=== PATIENT | male | born 1965 | race American Indian/Alaskan Native ===

== ENCOUNTER 2016-08-31 06:00 | Inpatient (IN) | payer OTHER ==
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
[2016-08-31] MEDS ORDERED: NACL 0.9% 1000 ML IV ONE (14:17)
--- NOTE | 2016-08-31 15:49 | Admit Criteria Form ---
Admission Criteria Documentation: DRUG INGESTION OR OVERDOSE Clinical Indications for Admission to Inpatient Care ( Place 'X' for any and all applicable criteria): Admission is indicated for severe toxicity as indicated by ANY ONE of the following(1)(2)(3)(4)(5)(6): [X ]I. Inpatient admission required rather than observation care (Also use Drug Ingestion or Overdose: Observation Care guideline as appropriate) because of ANY ONE of the following: [ ]a) Altered mental status that is severe or persistent [ ]b) Clinical finding (eg, metabolic acidosis, hypoglycemia, bradycardia) that is severe or persistent [ ]c) Toxic drug level that is persistent [ ]d) Psychiatric risk status not acceptable for outpatient management [ ]e) Continuous intravenous infusion of anticoagulation, platelet inhibitor, vasoactive, or antiarrhythmic medication (15)(16) [ X]f) Other condition, treatment or monitoring requiring inpatient admission [ ]II. Respiratory abnormalities [ ]III. Specific finding indicating severe and likely prolonged drug toxicity [ ]IV. Hemodynamic instability [ ]V. Dangerous arrhythmia [X ]. Hypertension requiring inpatient treatment Extended stay beyond goal length of stay may be needed for (4): [ ]a) Neurologic or respiratory compromise [ ]b) Hemodynamic instability [ ]c) Persistent toxic drug levels (25) [ ]d) Severe drug toxicities or complications [ ]e) Ongoing antidote treatment (eg, acetaminophen overdose)(5) [ ]f) Older patients(65 years or older) The original [facility] content created by [employer] has been revised. The portions of the content which have been revised are identified through the use of italic text or in bold, and [facility] has neither reviewed nor approved the modified material. All other unmodified content is copyright [facility] [employer]. Please see references footnoted in the original [facility] [employer] edition 2016 Admission Criteria Met: Yes
[2016-08-31] MEDS ORDERED: ASPIRIN PO ONE (16:48)
[2016-08-31 18:57] LABS: Blood Urea Nitrogen 9 mg/dL (9-20); Calcium 8.5 mg/dL (8.4-10.2); Carbon Dioxide 23 mmol/L (22-30); Chloride 107.9 mmol/L (98-107); Glucose 92 mg/dL (75-100); Potassium 4.3 mmol/L (3.6-5.0); Sodium 143 mmol/L (137-145)
[2016-08-31 18:58] LABS: Anion Gap 16 mmol/L
--- NOTE | 2016-08-31 18:58 | History and Physical Report ---
History of Present Illness Date of examination: 08/31/16 Chief complaint: "Dehydrated from alcohol" History of present illness: Patient's 51-year-old man with a history of cocaine abuse, type 2 diabetes mellitus, hypertension, GERD, Pancreatitis, tobacco dependency and schizophrenia who presents with hallucinations was suicidal or homicidal thoughts. He has been placed on 1013 by ED staff. He denied his medication for at least a month. He admits to drinking a case of beer yesterday. His last drink was around 3 AM this morning. He also admits to smoking crack cocaine. He plans to jump into traffic in his life. He is paranoid signs:. He complains of being dehydrated from his alcohol use. He denies any back pain at this particular time. He denies chest pain headaches nausea or vomiting. Alcohol level 0.22, blood glucose is 111, potassium level is 5.9 his artery received 2 L of normal saline and feels better. Mental Health crisis was notified. Past History Past Surgical History: No surgical history Social history: smoking, alcohol abuse, full code, other (crack cocaine). denies: prescription drug abuse, IV drug use Family history: diabetes, hypertension Medications and Allergies Allergies Allergy/AdvReac Type Severity Reaction Status Date / Time Penicillins Allergy Unknown Verified 05/22/15 05:04 Home Medications Medication Instructions Recorded Confirmed Last Taken Type Carvedilol [Coreg] 3.125 mg PO BID #60 tablet 08/28/14 05/22/15 Unknown Rx Omeprazole Magnesium [PriLOSEC Otc] 20 mg PO QDAY #30 tablet. 08/28/14 Unknown Rx QUEtiapine [SEROquel] 200 mg PO BID 05/22/15 05/22/15 Unknown History risperiDONE [RisperDAL] 2 mg PO QDAY 05/22/15 05/22/15 Unknown History Active Meds: Active Medications Carvedilol (Coreg) 3.125 mg PO BID ADRIAN Miscellaneous Medication (Omeprazole Magnesium [Prilosec Otc]) 20 mg PO QDAY ADRIAN Quetiapine Fumarate (Seroquel) 200 mg PO BID ADRIAN Review of Systems All systems: negative (as HPI and all other ROS reviewed and negative.) Exam - Physical Exam Narrative exam: GEN: WDWN, NAD, AWAKE, ALERT, ORIENTATED 3 HEENT: NCAT, PERRL, EOMI, OP CLEAR NECK: SUPPLE, NO THYROMEGALY, NO JVD, NO LAD CVS: RRR, NORMAL S1S2 LUNGS/CHEST: CTA B, NORMAL CHEST EXPANSION B, GOOD AIR ENTRY B ABD: SOFT NTND, GBS, NO REBOUND OR GUARDING EXT/SKIN: NO SIGNIFICANT EDEMA OR RASH MSK: FROM X 4 EXTREMITIES NEURO: CN 2-12 GROSSLY INTACT, NO FOCAL DEFICITS PSY: CALM - Constitutional Vitals: Temp Pulse Resp BP Pulse Ox 73 16 142/104 100 08/31/16 08:20 08/31/16 18:17 08/31/16 08:20 08/31/16 18:17 Assessment and Plan Patient's 51-year-old man with a history of cocaine abuse, type 2 diabetes mellitus, hypertension, GERD, Pancreatitis, tobacco dependency and schizophrenia who presents with hallucinations was suicidal or homicidal thoughts. He has been placed on 1013 by ED staff. He denied his medication for at least a month. He admits to drinking a case of beer yesterday. His last drink was around 3 AM this morning. He also admits to smoking crack cocaine. He plans to jump into traffic in his life. He is paranoid signs:. He complains of being dehydrated from his alcohol use. He denies any back pain at this particular time. He denies chest pain headaches nausea or vomiting. Alcohol level 0.22, blood glucose is 111, potassium level is 5.9 his artery received 2 L of normal saline and feels better. Mental Health crisis was notified 1. Etoh intoxication: iv atiran prn, thiamine 2. Hyperkalemia: repeat level, no peaked t wave on EKG, 3. Acute encephalopathy 4. Accelerated hypertenison: iv hydralazine prn 5. Schizophrenia, chronic and worsening: under 1013, mental health follow-up
[2016-08-31] MEDS ORDERED: HALDOL IV PRN (18:59)
[2016-08-31] MEDS ORDERED: ZOFRAN IV PRN (19:00)
[2016-08-31] MEDS ORDERED: APRESOLINE IV PRN (19:00)
[2016-08-31] MEDS: COREG PO SCH (23:45)
[2016-09-01] MEDS: NACL 0.45% 1000 ML 1,000 ML IV SCH ×2 (02:00→10:07)
[2016-09-01 09:28] LABS: Hematocrit 44.9 % (35.5-45.6); Mean Corpuscular HGB Conc 33 % (32-34); Mean Corpuscular Hemoglobin 32 pg (28-32); Mean Corpuscular Volume 96 fl (84-94); Platelet Count 234 K/mm3 (140-440); Red Cell Distribution Width 14.9 % (13.2-15.2); White Blood Count 5.4 K/mm3 (4.5-11.0)
[2016-09-01 09:36] LABS: Magnesium 1.9 mg/dL (1.7-2.3); Phosphorous 3.4 mg/dL (2.5-4.5)
[2016-09-01 09:38] LABS: Anion Gap 16 mmol/L; Blood Urea Nitrogen 9 mg/dL (9-20); Calcium 8.4 mg/dL (8.4-10.2); Carbon Dioxide 26 mmol/L (22-30); Chloride 102.4 mmol/L (98-107); Glucose 83 mg/dL (75-100); Potassium 3.7 mmol/L (3.6-5.0); Sodium 141 mmol/L (137-145)
[2016-09-01] MEDS ORDERED: NON-FORMULARY (Omeprazole Magnesium [Prilosec Otc] 20 MG) PO SCH (10:00)
[2016-09-01] MEDS ORDERED: PROTONIX PO SCH (10:00)
[2016-09-01] MEDS: COREG PO SCH ×2 (10:07→21:47)
[2016-09-01] MEDS: PROTONIX PO SCH (10:07)
[2016-09-01] MEDS: VITAMIN B-1 PO SCH (10:07)
[2016-09-01] MEDS: FOLVITE PO SCH (10:07)
--- NOTE | 2016-09-01 11:31 | Progress Note ---
Assessment and Plan Assessment and plan: Acute toxic metabolic encephalopathy. Admitted to med floor. Neurocheck q 6hr. Schizophrenia. Psych consulted Suicidal ideations. On involuntary hold - 1013 status. Acute alcohol intoxication. Monitor for alohol withdrawal. iv fluids. thiamine, folic acid. CIWA protocol DVT Prophylaxis. Lovenox Full code status History Interval history: Patient with acute alcohol intoxication, suicidal Hospitalist Physical - Physical exam Narrative exam: Gen appearance: not in acute distress, HEENT: Normocephalic, atraumatic Neck : supple, no JVD Lungs: Lungs clear to auscultation bilaterally, no crackles or wheeze. Heart : S1 and S2 regular, no murmurs rubs or gallop, Abdomen: soft non-tender, non-distended, normal bowel sounds Extremities: No edema clubbing or cyanosis, Neuro :awake alert ,no focal signs - Constitutional Vitals: Temp Pulse Resp BP Pulse Ox 97.8 F 60 18 160/111 98 09/01/16 08:20 09/01/16 08:20 09/01/16 08:20 09/01/16 08:20 09/01/16 08:20 Results - Labs CBC & Chem 7: 09/01/16 09:01 09/01/16 09:01 Labs: Laboratory Last Values WBC 5.4 K/mm3 (4.5-11.0) 09/01/16 09:01 RBC 4.70 M/mm3 (3.65-5.03) 09/01/16 09:01 Hgb 15.0 gm/dl (11.8-15.2) 09/01/16 09:01 Hct 44.9 % (35.5-45.6) 09/01/16 09:01 MCV 96 fl (84-94) H 09/01/16 09:01 MCH 32 pg (28-32) 09/01/16 09:01 MCHC 33 % (32-34) 09/01/16 09:01 RDW 14.9 % (13.2-15.2) 09/01/16 09:01 Plt Count 234 K/mm3 (140-440) 09/01/16 09:01 Sodium 141 mmol/L (137-145) 09/01/16 09:01 Potassium 3.7 mmol/L (3.6-5.0) 09/01/16 09:01 Chloride 102.4 mmol/L (98-107) 09/01/16 09:01 Carbon Dioxide 26 mmol/L (22-30) 09/01/16 09:01 Anion Gap 16 mmol/L 09/01/16 09:01 BUN 9 mg/dL (9-20) 09/01/16 09:01 Creatinine 1.0 mg/dL (0.8-1.5) 09/01/16 09:01 Estimated GFR > 60 ml/min 09/01/16 09:01 BUN/Creatinine Ratio 9.00 % 09/01/16 09:01 Glucose 83 mg/dL (75-100) 09/01/16 09:01 POC Glucose 88 (70-105) 09/01/16 08:28 Calcium 8.4 mg/dL (8.4-10.2) 09/01/16 09:01 Phosphorus 3.4 mg/dL (2.5-4.5) 09/01/16 09:01 Magnesium 1.9 mg/dL (1.7-2.3) 09/01/16 09:01
[2016-09-01] MEDS: LOVENOX SUB-Q SCH (23:11)
[2016-09-02] MEDS: D5/0.45NS 1,000 ML IV SCH ×2 (01:19→18:04)
[2016-09-02] MEDS: ATIVAN IV PRN ×6 (01:49→21:30)
[2016-09-02] MEDS: COREG PO SCH ×2 (09:46→22:00)
[2016-09-02] MEDS: FOLVITE PO SCH (09:46)
[2016-09-02] MEDS: PROTONIX PO SCH (09:46)
[2016-09-02] MEDS: VITAMIN B-1 PO SCH (09:46)
--- NOTE | 2016-09-02 09:52 | Discharge Summary ---
Providers - Providers Date of Admission: 08/31/16 18:31 Date of discharge: 09/02/16 Attending physician: LEIGHANN BLACK 08/31/16 19:02 Consult to Mental Health [CONS] Stat Reason For Exam: psychosis Place consult to:: [place] Notified:: yes Primary care physician: VARNISH FINISHER Hospitalization Condition: Fair Hospital course: Patient is 51 yo with history of schizophrenia, hypertension,diabetes, alcohol and cocaine abuse. He stated he drank a case of beer, presented with confusion, suicidal and homicidal thoughts. His serum alcohol level was 0.22. He was intoxicated. patient was admitted involuntarily 1013 status. After few days he became sober. he then denied being suicidal or homicidal. Initially Psych staff had recommended transfer to inpatient psych but after he improved, 1013 status was rescinded and he was discharged to [facility] which is voluntary. Total time spent on discharge, 32 mins. Disposition: DC/TX ANOTHER TYPE HEALTHCARE - Discharge Diagnoses (1) Toxic metabolic encephalopathy Status: Acute (2) Alcohol intoxication Status: Acute Qualifiers: Complication of substance-induced condition: C (3) Suicidal ideation Status: Acute (4) Diabetes mellitus type 2 in nonobese Status: Chronic (5) Alcohol abuse Status: Chronic (6) Cocaine abuse Status: Chronic (7) HTN (hypertension) Status: Chronic Qualifiers: Hypertension type: essential hypertension Qualified Code(s): I10 - Essential (primary) hypertension (8) Schizophrenia Status: Chronic Qualifiers: Schizophrenia type: unspecified Qualified Code(s): F20.9 - Schizophrenia, unspecified Core Measure Documentation - Palliative Care Palliative Care/ Comfort Measures: Not Applicable - Core Measures Any of the following diagnoses?: none Exam - Physical Exam Narrative exam: Gen appearance: not in acute distress, HEENT: Normocephalic, atraumatic Neck : supple, no JVD Lungs: Lungs clear to auscultation bilaterally, no crackles or wheeze. Heart : S1 and S2 regular, no murmurs rubs or gallop, Abdomen: soft non-tender, non-distended, normal bowel sounds Extremities: No edema clubbing or cyanosis, Neuro :awake alert ,no focal signs Psych: calm - Constitutional Vitals: Temp Pulse Resp BP Pulse Ox 98.7 F 74 18 164/116 98 09/02/16 08:30 09/02/16 08:30 09/02/16 08:30 09/02/16 08:30 09/02/16 08:30 Plan Activity: advance as tolerated Diet: regular Follow up with: PRIMARY CARE, [Primary Care Provider] - 3-5 Days Prescriptions: amLODIPine [Norvasc] 10 mg PO QDAY #30 tablet Folic Acid [Folvite] 1 mg PO QDAY #30 tablet Hydralazine HCl [Apresoline TAB] 50 mg PO Q8HR #90 tab Thiamine [Vitamin B-1] 100 mg PO QDAY #30 tablet
--- NOTE | 2016-09-02 15:20 | Progress Note ---
Assessment and Plan Assessment and plan: Acute toxic metabolic encephalopathy. Much improved. He is medically stable for discharge to inpatient. Schizophrenia. Psych consulted Suicidal ideations. On involuntary hold - 1013 status. Acute alcohol intoxication. Monitor for alcohol withdrawal. iv fluids. thiamine , folic acid. CIWA protocol DVT Prophylaxis. Lovenox Full code status He is medically stable for discharge. History Interval history: Patient presented with acute alcohol intoxication, suicidal Hospitalist Physical - Physical exam Narrative exam: Gen appearance: not in acute distress, HEENT: Normocephalic, atraumatic Neck : supple, no JVD Lungs: Lungs clear to auscultation bilaterally, no crackles or wheeze. Heart : S1 and S2 regular, no murmurs rubs or gallop, Abdomen: soft non-tender, non-distended, normal bowel sounds Extremities: No edema clubbing or cyanosis, Neuro :awake alert ,no focal signs - Constitutional Vitals: Temp Pulse Resp BP Pulse Ox 98.7 F 74 18 164/116 98 09/02/16 08:30 09/02/16 08:30 09/02/16 08:30 09/02/16 08:30 09/02/16 08:30 Results - Labs CBC & Chem 7: 09/01/16 09:01 09/01/16 09:01 Labs: Laboratory Last Values WBC 5.4 K/mm3 (4.5-11.0) 09/01/16 09:01 RBC 4.70 M/mm3 (3.65-5.03) 09/01/16 09:01 Hgb 15.0 gm/dl (11.8-15.2) 09/01/16 09:01 Hct 44.9 % (35.5-45.6) 09/01/16 09:01 MCV 96 fl (84-94) H 09/01/16 09:01 MCH 32 pg (28-32) 09/01/16 09:01 MCHC 33 % (32-34) 09/01/16 09:01 RDW 14.9 % (13.2-15.2) 09/01/16 09:01 Plt Count 234 K/mm3 (140-440) 09/01/16 09:01 Sodium 141 mmol/L (137-145) 09/01/16 09:01 Potassium 3.7 mmol/L (3.6-5.0) 09/01/16 09:01 Chloride 102.4 mmol/L (98-107) 09/01/16 09:01 Carbon Dioxide 26 mmol/L (22-30) 09/01/16 09:01 Anion Gap 16 mmol/L 09/01/16 09:01 BUN 9 mg/dL (9-20) 09/01/16 09:01 Creatinine 1.0 mg/dL (0.8-1.5) 09/01/16 09: Estimated GFR > 60 ml/min 09/01/16 09: BUN/Creatinine Ratio 9.00 % 09/01/16 09:01 Glucose 83 mg/dL (75-100) 09/01/16 09:01 POC Glucose 88 (70-105) 09/01/16 08:28 Calcium 8.4 mg/dL (8.4-10.2) 09/01/16 09:01 Phosphorus 3.4 mg/dL (2.5-4.5) 09/01/16 09: Magnesium 1.9 mg/dL (1.7-2.3) 09/01/16 09:01
[2016-09-02] MEDS: LOVENOX SUB-Q SCH (22:00)
[2016-09-03] MEDS: FOLVITE PO SCH (10:29)
[2016-09-03] MEDS: PROTONIX PO SCH (10:29)
[2016-09-03] MEDS: COREG PO SCH ×2 (10:48→21:12)
[2016-09-03] MEDS: VITAMIN B-1 PO SCH (12:41)
--- NOTE | 2016-09-03 14:58 | Progress Note ---
Assessment and Plan Assessment and plan: Acute toxic metabolic encephalopathy. This is now resolved. He is medically stable for discharge to inpatient Psych. Schizophrenia. Psych consulted Suicidal ideations. On involuntary hold - 1013 status. Acute alcohol intoxication. Monitor for alcohol withdrawal. iv fluids. thiamine , folic acid. [facility] protocol DVT Prophylaxis. Lovenox Full code status He is medically stable for discharge. - Patient Problems (1) Toxic metabolic encephalopathy Current Visit: Yes Status: Acute (2) Alcohol intoxication Current Visit: Yes Status: Acute Qualifiers: Complication of substance-induced condition: C (3) Suicidal ideation Current Visit: Yes Status: Acute History Interval history: Patient presented with acute alcohol intoxication, suicidal, no chest pain, Patient states he wants to go home Hospitalist Physical - Physical exam Narrative exam: Gen appearance: not in acute distress, HEENT: Normocephalic, atraumatic Neck : supple, no JVD Lungs: Lungs clear to auscultation bilaterally, no crackles or wheeze. Heart : S1 and S2 regular, no murmurs rubs or gallop, Abdomen: soft non-tender, non-distended, normal bowel sounds Extremities: No edema clubbing or cyanosis, Neuro :awake alert ,no focal signs Psych: calm - Constitutional Vitals: Temp Pulse Resp BP Pulse Ox 98.2 F 85 18 130/75 100 09/03/16 11:30 09/03/16 11:30 09/03/16 11:30 09/03/16 11:30 09/03/16 11:30 Results - Labs CBC & Chem 7: 09/01/16 09:01 09/01/16 09:01 Labs: Laboratory Last Values WBC 5.4 K/mm3 (4.5-11.0) 09/01/16 09:01 RBC 4.70 M/mm3 (3.65-5.03) 09/01/16 09:01 Hgb 15.0 gm/dl (11.8-15.2) 09/01/16 09:01 Hct 44.9 % (35.5-45.6) 09/01/16 09:01 MCV 96 fl (84-94) H 09/01/16 09:01 MCH 32 pg (28-32) 09/01/16 09:01 MCHC 33 % (32-34) 09/01/16 09:01 RDW 14.9 % (13.2-15.2) 09/01/16 09:01 Plt Count 234 K/mm3 (140-440) 09/01/16 09:01 Sodium 141 mmol/L (137-145) 09/01/16 09:01 Potassium 3.7 mmol/L (3.6-5.0) 09/01/16 09:01 Chloride 102.4 mmol/L (98-107) 09/01/16 09:01 Carbon Dioxide 26 mmol/L (22-30) 09/01/16 09:01 Anion Gap 16 mmol/L 09/01/16 09:01 BUN 9 mg/dL (9-20) 09/01/16 09:01 Creatinine 1.0 mg/dL (0.8-1.5) 09/01/16 09:01 Estimated GFR > 60 ml/min 09/01/16 09:01 BUN/Creatinine Ratio 9.00 % 09/01/16 09:01 Glucose 83 mg/dL (75-100) 09/01/16 09:01 POC Glucose 88 (70-105) 09/01/16 08:28 Calcium 8.4 mg/dL (8.4-10.2) 09/01/16 09:01 Phosphorus 3.4 mg/dL (2.5-4.5) 09/01/16 09:01 Magnesium 1.9 mg/dL (1.7-2.3) 09/01/16 09:01
[2016-09-03] MEDS: LOVENOX SUB-Q SCH (21:12)
[2016-09-04] MEDS: PROTONIX PO SCH (09:16)
[2016-09-04] MEDS: FOLVITE PO SCH (09:16)
[2016-09-04] MEDS: VITAMIN B-1 PO SCH (09:17)
[2016-09-04] MEDS: COREG PO SCH ×2 (09:17→21:11)
--- NOTE | 2016-09-04 13:17 | Progress Note ---
Assessment and Plan Assessment and plan: Acute toxic metabolic encephalopathy. This is now resolved. He is medically stable for discharge to inpatient Psych. Schizophrenia. Psych consulted Suicidal ideations. On involuntary hold - 1013 status. Acute alcohol intoxication. Monitor for alcohol withdrawal. iv fluids. thiamine , folic acid. [facility] protocol DVT Prophylaxis. Lovenox Full code status He is medically stable for discharge. - Patient Problems (1) Toxic metabolic encephalopathy Current Visit: Yes Status: Acute (2) Alcohol intoxication Current Visit: Yes Status: Acute Qualifiers: Complication of substance-induced condition: C (3) Suicidal ideation Current Visit: Yes Status: Acute History Interval history: Patient presented with acute alcohol intoxication, suicidal, no chest pain, Patient states he wants to go home and that he is not suicidal Hospitalist Physical - Physical exam Narrative exam: Gen appearance: not in acute distress, HEENT: Normocephalic, atraumatic Neck : supple, no JVD Lungs: Lungs clear to auscultation bilaterally, no crackles or wheeze. Heart : S1 and S2 regular, no murmurs rubs or gallop, Abdomen: soft non-tender, non-distended, normal bowel sounds Extremities: No edema clubbing or cyanosis, Neuro :awake alert ,no focal signs Psych: calm - Constitutional Vitals: Temp Pulse Resp BP Pulse Ox 98 F 81 18 134/100 95 09/04/16 06:15 09/04/16 06:15 09/04/16 06:15 09/04/16 06:15 09/04/16 00:00 Results - Labs CBC & Chem 7: 09/01/16 09:01 09/01/16 09:01 Labs: Laboratory Last Values WBC 5.4 K/mm3 (4.5-11.0) 09/01/16 09:01 RBC 4.70 M/mm3 (3.65-5.03) 09/01/16 09:01 Hgb 15.0 gm/dl (11.8-15.2) 09/01/16 09:01 Hct 44.9 % (35.5-45.6) 09/01/16 09:01 MCV 96 fl (84-94) H 09/01/16 09:01 MCH 32 pg (28-32) 09/01/16 09:01 MCHC 33 % (32-34) 09/01/16 09:01 RDW 14.9 % (13.2-15.2) 09/01/16 09:01 Plt Count 234 K/mm3 (140-440) 09/01/16 09:01 Sodium 141 mmol/L (137-145) 09/01/16 09:01 Potassium 3.7 mmol/L (3.6-5.0) 09/01/16 09:01 Chloride 102.4 mmol/L (98-107) 09/01/16 09:01 Carbon Dioxide 26 mmol/L (22-30) 09/01/16 09:01 Anion Gap 16 mmol/L 09/01/16 09:01 BUN 9 mg/dL (9-20) 09/01/16 09:01 Creatinine 1.0 mg/dL (0.8-1.5) 09/01/16 09:01 Estimated GFR > 60 ml/min 09/01/16 09:01 BUN/Creatinine Ratio 9.00 % 09/01/16 09:01 Glucose 83 mg/dL (75-100) 09/01/16 09:01 POC Glucose 88 (70-105) 09/01/16 08:28 Calcium 8.4 mg/dL (8.4-10.2) 09/01/16 09:01 Phosphorus 3.4 mg/dL (2.5-4.5) 09/01/16 09:01 Magnesium 1.9 mg/dL (1.7-2.3) 09/01/16 09:01
[2016-09-04] MEDS: LOVENOX SUB-Q SCH (21:10)
[2016-09-05] MEDS: VITAMIN B-1 PO SCH (12:03)
[2016-09-05] MEDS: COREG PO SCH ×2 (12:03→21:46)
[2016-09-05] MEDS: FOLVITE PO SCH (12:03)
[2016-09-05] MEDS: PROTONIX PO SCH (12:04)
--- NOTE | 2016-09-05 13:22 | Progress Note ---
Assessment and Plan Assessment and plan: Acute toxic metabolic encephalopathy. This is now resolved. He is medically stable for discharge to inpatient Psych. Schizophrenia. Psych consulted Suicidal ideations. On involuntary hold - 1013 status. Acute alcohol intoxication. Monitor for alcohol withdrawal. iv fluids. thiamine , folic acid. [facility] protocol DVT Prophylaxis. Lovenox Full code status He is medically stable for discharge. - Patient Problems (1) Toxic metabolic encephalopathy Status: Acute (2) Alcohol intoxication Status: Acute Qualifiers: Complication of substance-induced condition: C (3) Suicidal ideation Status: Acute History Interval history: Patient presented with acute alcohol intoxication, suicidal, no chest pain, Patient states he wants to go home and that he is not suicidal Hospitalist Physical - Physical exam Narrative exam: Gen appearance: not in acute distress, HEENT: Normocephalic, atraumatic Neck : supple, no JVD Lungs: Lungs clear to auscultation bilaterally, no crackles or wheeze. Heart : S1 and S2 regular, no murmurs rubs or gallop, Abdomen: soft non-tender, non-distended, normal bowel sounds Extremities: No edema clubbing or cyanosis, Neuro :awake alert ,no focal signs Psych: calm - Constitutional Vitals: Temp Pulse Resp BP Pulse Ox 98.4 F 76 20 168/110 100 09/05/16 07:50 09/05/16 12:03 09/05/16 11:56 09/05/16 12:03 09/05/16 07:50 Results - Labs CBC & Chem 7: 09/01/16 09:01 09/01/16 09:01 Labs: Laboratory Last Values WBC 5.4 K/mm3 (4.5-11.0) 09/01/16 09:01 RBC 4.70 M/mm3 (3.65-5.03) 09/01/16 09:01 Hgb 15.0 gm/dl (11.8-15.2) 09/01/16 09:01 Hct 44.9 % (35.5-45.6) 09/01/16 09:01 MCV 96 fl (84-94) H 09/01/16 09:01 MCH 32 pg (28-32) 09/01/16 09:01 MCHC 33 % (32-34) 09/01/16 09:01 RDW 14.9 % (13.2-15.2) 09/01/16 09:01 Plt Count 234 K/mm3 (140-440) 09/01/16 09:01 Sodium 141 mmol/L (137-145) 09/01/16 09:01 Potassium 3.7 mmol/L (3.6-5.0) 09/01/16 09:01 Chloride 102.4 mmol/L (98-107) 09/01/16 09:01 Carbon Dioxide 26 mmol/L (22-30) 09/01/16 09:01 Anion Gap 16 mmol/L 09/01/16 09:01 BUN 9 mg/dL (9-20) 09/01/16 09:01 Creatinine 1.0 mg/dL (0.8-1.5) 09/01/16 09:01 Estimated GFR > 60 ml/min 09/01/16 09:01 BUN/Creatinine Ratio 9.00 % 09/01/16 09:01 Glucose 83 mg/dL (75-100) 09/01/16 09:01 POC Glucose 88 (70-105) 09/01/16 08:28 Calcium 8.4 mg/dL (8.4-10.2) 09/01/16 09:01 Phosphorus 3.4 mg/dL (2.5-4.5) 09/01/16 09:01 Magnesium 1.9 mg/dL (1.7-2.3) 09/01/16 09:01
[2016-09-05] MEDS ORDERED: CATAPRES PO STA (19:37)
[2016-09-05] MEDS ORDERED: NORVASC PO SCH (20:00)
[2016-09-05] MEDS: LOVENOX SUB-Q SCH (21:51)
[2016-09-06] MEDS ORDERED: APRESOLINE PO SCH (08:00)
[2016-09-06] MEDS ORDERED: NORVASC PO SCH (08:00)
[2016-09-06] MEDS: PROTONIX PO SCH (10:28)
[2016-09-06] MEDS: FOLVITE PO SCH (10:28)
--- NOTE | 2016-09-06 10:42 | Discharge Summary ---
Providers - Providers Date of Admission: 08/31/16 18:31 Date of discharge: 09/06/16 Attending physician: LEIGHANN BLACK 08/31/16 19:02 Consult to Mental Health [[facility]] Stat Reason For Exam: psychosis Place consult to:: [place] Notified:: yes Primary care physician: DAY TREATMENT CLINICIAN/ART THERAPIST Hospitalization Condition: Fair Hospital course: Patient is 51 yo with history of schizophrenia, hypertension,diabetes, alcohol and cocaine abuse. He stated he drank a case of beer, presented with confusion, suicidal and homicidal thoughts. His serum alcohol level was 0.22. He was intoxicated. patient was admitted involuntarily 1013 status. After few days he became sober. he then denied being suicidal or homicidal. Initially Psych staff had recommended transfer to inpatient psych but after he improved, 1013 status was rescinded and he was discharged to [facility] which is voluntary. Total time spent on discharge, 32 mins. Disposition: DC/TX ANOTHER TYPE HEALTHCARE - Discharge Diagnoses (1) Toxic metabolic encephalopathy Status: Acute (2) Alcohol intoxication Status: Acute Qualifiers: Complication of substance-induced condition: C (3) Suicidal ideation Status: Acute Core Measure Documentation - Palliative Care Palliative Care/ Comfort Measures: Not Applicable - Core Measures Any of the following diagnoses?: none Exam - Constitutional Vitals: Temp Pulse Resp BP Pulse Ox 98.5 F 65 20 134/88 98 09/06/16 08:09 09/06/16 09:39 09/06/16 08:09 09/06/16 09:39 09/06/16 08:09 Plan Activity: advance as tolerated Diet: low salt Additional Instructions: 1.Follow up with PCP or [facility] in 1 week. 2.Discharge, to go to voluntary Psych program Follow up with: PRIMARY CAREMD [Primary Care Provider] - 3-5 Days Prescriptions: amLODIPine [Norvasc] 10 mg PO QDAY #30 tablet Folic Acid [Folvite] 1 mg PO QDAY #30 tablet Hydralazine HCl [Apresoline TAB] 50 mg PO Q8HR #90 tab Thiamine [Vitamin B-1] 100 mg PO QDAY #30 tablet
[2016-09-06] MEDS: COREG PO SCH (10:53)
[2016-09-06] MEDS: VITAMIN B-1 PO SCH (11:38)
[2016-09-06 12:38] VITALS: BP 132/96
== END 2016-09-06 13:15 | disposition other institution (70) | DRG 896 ==
LOC: ED 06:00 → 3A 18:31
PROVIDERS: ADMIT Internal Medicine; ATTEND Internal Medicine
DX: F10.229 Alcohol dependence with intoxication, unspecified (principal); G92 Toxic encephalopathy; F20.0 Paranoid schizophrenia; R45.851 Suicidal ideations; F17.210 Nicotine dependence, cigarettes, uncomplicated; I10 Essential (primary) hypertension; E11.9 Type 2 diabetes mellitus without complications; K21.9 Gastro-esophageal reflux disease without esophagitis; E87.5 Hyperkalemia; F19.10 Other psychoactive substance abuse, uncomplicated; F14.10 Cocaine abuse, uncomplicated; Z83.3 Family history of diabetes mellitus; Z82.49 Family history of ischemic heart disease and other diseases of the circulatory system; Z88.0 Allergy status to penicillin
CPT/HCPCS: 36415; 80048; 82962; 83735; 84100; 85027; 93005; 93010; 96360; J0360; J1630; J1650; J2060; J7030

== ENCOUNTER 2017-03-14 05:59 | Emergency (ER) | payer SELFPAY ==
[2017-03-14 07:38] LABS: Basophils % (Auto) 0.9 % (0.0-1.8); Eosinophils % (Auto) 1.2 % (0.0-4.3); Hematocrit 46.2 % (35.5-45.6); Hemoglobin 15.3 gm/dl (11.8-15.2); Mean Corpuscular HGB Conc 33 % (32-34); Mean Corpuscular Hemoglobin 32 pg (28-32); Mean Corpuscular Volume 97 fl (84-94); Platelet Count 285 K/mm3 (140-440); Red Blood Count 4.75 M/mm3 (3.65-5.03); Red Cell Distribution Width 14.3 % (13.2-15.2); White Blood Count 9.8 K/mm3 (4.5-11.0)
[2017-03-14 07:47] LABS: Anion Gap 21 mmol/L; BUN/Creatinine Ratio 5.55; Blood Urea Nitrogen 5 mg/dL (9-20); Calcium 9.3 mg/dL (8.4-10.2); Carbon Dioxide 26 mmol/L (22-30); Chloride 101.1 mmol/L (98-107); Glucose 80 mg/dL (75-100); Sodium 143 mmol/L (137-145)
--- NOTE | 2017-03-14 14:59 | Emergency Department Report ---
ED Chest Pain HPI - General Chief Complaint: Chest Pain Stated Complaint: CHEST PAIN Time Seen by Provider: 03/14/17 14:41 Source: patient, EMS Mode of arrival: Stretcher Limitations: No Limitations - History of Present Illness Initial Comments: 51-year-old male here with complaint of chest pain. Patient states she's been using cocaine and amphetamines. He is also feeling suicidal or homicidal. He is not hospitalized. He is not taking any of his psychiatric medications right now. MD Complaint: chest pain Onset: during rest Pain Location: substernal Pain Radiation: none Quality: tightness Improves With: nothing Worsens With: nothing re: vomting. denies: nausea - Related Data Home Medications Medication Instructions Recorded Confirmed Last Taken QUEtiapine [SEROquel] 300 mg PO HS 05/22/15 09/06/16 Unknown risperiDONE [RisperDAL] 1 mg PO QDAY 05/22/15 09/06/16 Unknown Coreg 3.125 mg PO BID 09/06/16 09/06/16 Unknown Previous Rx's Medication Instructions Recorded Last Taken Type Omeprazole Magnesium [PriLOSEC Otc] 20 mg PO QDAY #30 tablet. 08/28/14 Unknown Rx Folic Acid [Folvite] 1 mg PO QDAY #30 tablet 09/02/16 Unknown Rx Thiamine [Vitamin B-1] 100 mg PO QDAY #30 tablet 09/02/16 Unknown Rx Hydralazine HCl [Apresoline TAB] 50 mg PO Q8HR #90 tab 09/06/16 Unknown Rx amLODIPine [Norvasc] 10 mg PO QDAY #30 tablet 09/06/16 Unknown Rx Allergies Allergy/AdvReac Type Severity Reaction Status Date / Time Penicillins Allergy Unknown Verified 05/22/15 05:04 Heart Score - HEART Score History: Slightly suspicious EKG: Normal Age: 45-65 Risk factors: 1-2 risk factors Troponin: < normal limit HEART Score: 2 ED Review of Systems ROS: Stated complaint: CHEST PAIN Other details as noted in HPI Comment: All other systems reviewed and negative Constitutional: denies: chills, fever Eyes: denies: eye pain, eye discharge, vision change ENT: denies: ear pain, throat pain Respiratory: denies: cough, shortness of breath, wheezing Cardiovascular: denies: chest pain, palpitations Endocrine: no symptoms reported Gastrointestinal: denies: abdominal pain, nausea, diarrhea Genitourinary: denies: urgency, dysuria Musculoskeletal: denies: back pain, joint swelling, arthralgia Skin: denies: rash, lesions Neurological: denies: headache, weakness, paresthesias Psychiatric: denies: anxiety, depression Hematological/Lymphatic: denies: easy bleeding, easy bruising ED Past Medical Hx - Past Medical History Hx Hypertension: Yes Hx Congestive Heart Failure: No Hx Diabetes: Yes Hx GERD: Yes Hx Psychiatric Treatment: Yes (schizophrenia) Hx Asthma: No Hx COPD: No Additional medical history: History of Pancreatitis - Surgical History Hx Coronary Stent: Yes Additional Surgical History: dilated esophagus - Family History Family history: no significant - Social History Smoking Status: Current Some Day Smoker Substance Use Type: Alcohol - Medications Home Medications: Home Medications Medication Instructions Recorded Confirmed Last Taken Type Omeprazole Magnesium [PriLOSEC Otc] 20 mg PO QDAY #30 tablet. 08/28/14 Unknown Rx QUEtiapine [SEROquel] 300 mg PO HS 05/22/15 09/06/16 Unknown History risperiDONE [RisperDAL] 1 mg PO QDAY 05/22/15 09/06/16 Unknown History Folic Acid [Folvite] 1 mg PO QDAY #30 tablet 09/02/16 Unknown Rx Thiamine [Vitamin B-1] 100 mg PO QDAY #30 tablet 09/02/16 Unknown Rx Coreg 3.125 mg PO BID 09/06/16 09/06/16 Unknown History Hydralazine HCl [Apresoline TAB] 50 mg PO Q8HR #90 tab 09/06/16 Unknown Rx amLODIPine [Norvasc] 10 mg PO QDAY #30 tablet 09/06/16 Unknown Rx ED Physical Exam - General Limitations: No Limitations General appearance: alert, in no apparent distress - Head Head exam: Present: atraumatic, normocephalic - Eye Eye exam: Present: normal appearance - ENT ENT exam: Present: mucous membranes moist - Neck Neck exam: Present: normal inspection - Respiratory Respiratory exam: Present: normal lung sounds bilaterally. Absent: respiratory distress - Cardiovascular Cardiovascular Exam: Present: regular rate, normal rhythm. Absent: systolic murmur, diastolic murmur, rubs, gallop - GI/Abdominal GI/Abdominal exam: Present: soft, normal bowel sounds - Rectal Rectal exam: Present: deferred - Extremities Exam Extremities exam: Present: normal inspection - Back Exam Back exam: Present: normal inspection - Neurological Exam Neurological exam: Present: alert, oriented X3 - Psychiatric Psychiatric exam: Present: normal affect, normal mood, suicidal ideation - Skin Skin exam: Present: warm, dry, intact, normal color. Absent: rash ED Course Vital Signs 03/14/17 03/14/17 06:29 15:06 Temperature 98.3 F 98.2 F Pulse Rate 75 64 Respiratory 20 16 Rate Blood Pressure 142/82 Blood Pressure 180/92 [Left] O2 Sat by Pulse 98 100 Oximetry ALVIN score - Alvin Score Age > 65: (0) No Aspirin use within the Past 7 Days: (0) No 3 or more CAD Risk Factors: (1) Yes 2 or more Angina events in past 24 hrs: (0) No Known CAD with more than 50% Stenosis: (0) No Elevated Cardiac Markers: (0) No ST Deviation Greater than 0.5mm: (0) No ALVIN Score: 1 ED Medical Decision Making - Lab Data Result diagrams: 03/14/17 07:14 03/14/17 07:14 Laboratory Results - last 24 hr 03/14/17 03/14/17 03/14/17 07:14 07:14 09:32 WBC 9.8 RBC 4.75 Hgb 15.3 H Hct 46.2 H MCV 97 H MCH 32 MCHC 33 RDW 14.3 Plt Count 285 Lymph % (Auto) 19.8 [place] % (Auto) 8.9 H Eos % (Auto) 1.2 Baso % (Auto) 0.9 Lymph # 1.9 [place] # 0.9 H Eos # 0.1 Baso # 0.1 Seg Neutrophils % 69.2 Seg Neutrophils # 6.8 Sodium 143 Potassium 5.0 Chloride 101.1 Carbon Dioxide 26 Anion Gap 21 BUN 5 L Creatinine 0.9 Estimated GFR > 60 BUN/Creatinine Ratio 5.55 Glucose 80 Calcium 9.3 Troponin T < 0.010 < 0.010 03/14/17 13:21 WBC RBC Hgb Hct MCV MCH MCHC RDW Plt Count Lymph % (Auto) [place] % (Auto) Eos % (Auto) Baso % (Auto) Lymph # [place] # Eos # Baso # Seg Neutrophils % Seg Neutrophils # Sodium Potassium Chloride Carbon Dioxide Anion Gap BUN Creatinine Estimated GFR BUN/Creatinine Ratio Glucose Calcium Troponin T < 0.010 - EKG Data -: EKG Interpreted by Me - EKG Data 03/14/17 15:00 Sinus 86 normal axis normal intervals and no ST-T wave changes. - Medical Decision Making 51-year-old male here with complaint of chest pain. Patient states she's been using cocaine and methamphetamine. He glances suicidality. He has no plan. He states he is tried to harm himself before. He has been hospitalized in the past. He has not been taking his psychiatric medications. And 1013 patient patient is medically clear from his the chest pain standpoint and will have a psychiatrist evaluate him. Patient is medically clear for psychiatric evaluation. Portions of this chart were dictated with dictation software. There may be dictation errors contained within this note. Critical care attestation.: If time is entered above; I have spent that time in minutes in the direct care of this critically ill patient, excluding procedure time. ED Disposition Clinical Impression: Chest pain, Suicidal behavior, Cocaine abuse Disposition: [id number]/TX-65 PSY HOSP/PSY UNIT Is pt being admited?: No Condition: Stable Instructions: Chest Pain (ED) Referrals: PRIMARY CARE, [Primary Care Provider] - 3-5 Days
--- NOTE | 2017-03-14 15:10 | XRay Report ---
AP CHEST: HISTORY: chest pain AP view of the chest demonstrates a normal mediastinal and cardiac contour with clear lungs and normal bony and soft tissue structures. IMPRESSION: Unremarkable AP chest.
[2017-03-14 20:45] LABS: Urine Drugs of Abuse Note Disclamer
[2017-03-14 21:08] LABS: Bilirubin,Urine NEG (Negative); Blood,Urine NEG (Negative); Ketones,Urine NEG (Negative); Leukocyte Esterase,Urine NEG (Negative); Mucus,Urine FEW /HPF; Nitrite,Urine NEG (Negative); Protein,Urine <15 mg/dL mg/dL (Negative); WBC,Urine < 1.0 /HPF (0.0-6.0)
[2017-03-15] MEDS ORDERED: ZESTRIL PO ONE (06:30)
[2017-03-15] MEDS ORDERED: ZESTRIL ONE (08:53)
[2017-03-15] MEDS ORDERED: APRESOLINE ONE (21:54)
[2017-03-15] MEDS ORDERED: APRESOLINE PO ONE (21:54)
[2017-03-15] MEDS ORDERED: NORVASC PO ONE (21:54)
[2017-03-16] MEDS ORDERED: TYLENOL ONE (03:16)
[2017-03-16] MEDS ORDERED: NON-FORMULARY (Coreg 3.125 MG) PO SCH (23:15)
[2017-03-16] MEDS ORDERED: NON-FORMULARY (Hydralazine Hcl [Apresoline Tab] 50 MG) PO SCH (23:15)
[2017-03-16] MEDS: COREG PO SCH (23:40)
[2017-03-17] MEDS ORDERED: ALUM-MAG HYDROX-SIMETH 200-200-20MG/5ML PO ONE ×2 (03:15→03:19)
[2017-03-17] MEDS: APRESOLINE PO SCH ×3 (06:09→22:30)
[2017-03-17] MEDS: COREG PO SCH ×2 (10:03→22:30)
[2017-03-17] MEDS: FOLVITE PO SCH (10:04)
[2017-03-17] MEDS: NORVASC PO SCH (10:05)
--- NOTE | 2017-03-17 14:43 | Consultation ---
History of Present Illness - Reason for Consult Consult date: 03/17/17 Reason for consult: Mental Health Evaluation Requesting physician: MELANY LEONE - Chief Complaint Chief complaint: "I want help for my addiction" - History of Present Psychiatric Illness 51-year-old male here with complaint of chest pain. Patient states she's been using cocaine and amphetamines. He stated being suicidal or homicidal. Today patient is calm and cooperative during the assessment. He stated that he would like help for his substance addiction. He stated that he use all types of substances (marijuana, amphetamines, cocaine). He stated that his life is "screwed up" and that's why he was suicidal on admission. He stated that he use substances to self medicate so he can sleep. He acknowledged a dx of Bipolar DO. He stated that he take Seroquel, but have not taken the medication in a month. He stated that he have a local psychiatrist. He admit to 's intermittently, even when he isn't using substances. He denied having a plan for suicide on admission, but stated having thoughts to overdose in the past. He is adamant about attending [facility] rehab services. He denies SI/HI's and VH's. He rate his depression a 6/10, with 10 being the worse. He denies a poor appetite. He stated that he drink alcohol "sometimes." Medications and Allergies Allergies Allergy/AdvReac Type Severity Reaction Status Date / Time Penicillins Allergy Unknown Verified 05/22/15 05:04 Home Medications Medication Instructions Recorded Confirmed Last Taken Type QUEtiapine [SEROquel] 300 mg PO HS 05/22/15 03/16/17 Unknown History Coreg 3.125 mg PO BID 09/06/16 03/16/17 Unknown History Hydralazine HCl [Apresoline TAB] 50 mg PO Q8HR #90 tab 09/06/16 03/16/17 Unknown Rx amLODIPine [Norvasc] 10 mg PO QDAY #30 tablet 09/06/16 03/16/17 Unknown Rx Trazodone HCl 150 mg PO QHS 03/16/17 03/16/17 Unknown History Active Meds: Active Medications Amlodipine Besylate (Norvasc) 10 mg PO QDAY ADRIAN Last Admin: 03/17/17 10:05 Dose: 10 mg Carvedilol (Coreg) 3.125 mg PO BID [facility] Last Admin: 03/17/17 10:03 Dose: 3.125 mg Folic Acid (Folvite) 1 mg PO QDAY [facility] Last Admin: 03/17/17 10:04 Dose: 1 mg Hydralazine HCl (Apresoline) 50 mg PO Q8HR [facility] Last Admin: 03/17/17 06:09 Dose: 50 mg Past psychiatric history - Past Medical History Past Medical History: hypertension, other (Hx of pancreatitis) Past Surgical History: Other (GI Surgery) - past Psychiatric treatment and history Psych: Bipolar psychiatric treatment history: Multiple inpatient psy services. Father - Alcoholic - Social History Social history: other ( [place]ute, Homeless) Mental Status Exam - Vital signs Last Vital Signs Temp 98.0 F 03/17/17 08:01 Pulse 74 03/17/17 08:01 Resp 18 03/17/17 08:01 BP 135/65 03/17/17 08:01 Pulse Ox 99 03/17/17 08:01 - Exam Narrative exam: ROS: (+) depression MSE: Appearance: calm, cooperative Behavior: regular eye contact Speech: regular rate and tone Mood: "okay" Affect: congruent to mood Thought Process: circumstantial Thought Content: denies SI/HI's and VH's, intermittent AH's Motor Activity: lying in bed Cognition: A/Ox 3 Insight: fair Judgment: fair Results Result Diagrams: 03/14/17 07:14 03/14/17 07:14 All other labs normal. Assessment and Plan Assessment and plan: Impression: Historical Dx: Bipolar DO. Substance Use DO (cocaine, marijuana). Today patient is calm and cooperative during the assessment. DDx: R/O MDD with psychotic features, R/O Substance Induced Mood DO Recommendation/Plan: Evaluate 1013 in 24 hours to determine proper dispo. Start Seroquel 200 mg PO HS for mood/psychotic symptoms. Discussed possible metabolic side effects of Seroquel with patient.
[2017-03-18] MEDS: APRESOLINE PO SCH ×3 (07:07→22:50)
[2017-03-18] MEDS: NORVASC PO SCH (10:04)
[2017-03-18] MEDS: COREG PO SCH ×2 (10:04→22:50)
[2017-03-18] MEDS: FOLVITE PO SCH (10:04)
[2017-03-18] MEDS ORDERED: ALUM-MAG HYDROX-SIMETH 200-200-20MG/5ML PO ONE (14:43)
--- NOTE | 2017-03-18 15:50 | Progress Note ---
Subjective - Reason for Consult Consult date: 03/18/17 Reason for consult: follow up - Chief Complaint Chief complaint: "I still want to go somewhere." 51-year-old male here presenting to the ER initially for complaint of chest pain. Patient stated he had been using cocaine and amphetamines. He stated being suicidal or homicidal. Today patient is calm and cooperative during the assessment. He stated that he would like help for his substance addiction. He states he would probably overdose on drugs if he does not get help. 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 Sleep is fair but is mood is irritable. He questions if he can get back on his trazodone. He also reported he has previously been on SEroquel 400mg hs. Mental Status Exam - Vital signs Last Vital Signs Temp 98.4 F 03/18/17 09:18 Pulse 68 03/18/17 15:30 Resp 18 03/18/17 15:30 BP 114/76 03/18/17 15:30 Pulse Ox 100 03/18/17 15:30 Assessment and Plan ROS: (+) depression MSE: Appearance: calm, cooperative Behavior: regular eye contact Speech: regular rate and tone Mood: "okay" Affect: congruent to mood Thought Process: circumstantial Thought Content: he denies intention to overdose. no homicidal ideation Perceptual: no AVH Motor Activity: within normal limits Cognition: A/Ox 3 Insight: fair Judgment: fair Assessment and plan: Impression: Historical Dx: Bipolar DO. Substance Use DO (cocaine, marijuana). Today patient is calm and cooperative during the assessment. DDx: R/O MDD with psychotic features, R/O Substance Induced Mood DO Recommendation/Plan: Continue 1013. Increase seroquel to 300mg hs to start mood.
[2017-03-19] MEDS: COREG PO SCH ×2 (11:36→22:41)
[2017-03-19] MEDS: FOLVITE PO SCH (11:36)
[2017-03-19] MEDS: NORVASC PO SCH (11:37)
[2017-03-19] MEDS: APRESOLINE PO SCH ×3 (11:37→21:41)
--- NOTE | 2017-03-19 15:46 | Progress Note ---
Subjective - Reason for Consult Consult date: 03/19/17 Reason for consult: follow up - Chief Complaint Chief complaint: "I'm the same." 51-year-old male here presenting to the ER initially for complaint of chest pain. Patient stated he had been using cocaine and amphetamines. He stated being suicidal or homicidal. Today patient is calm and cooperative during the assessment. He stated that he would like help for his substance addiction. He stated yesterday he would probably overdose on drugs if he does not get help. Today, he reports feeling the same.He wants to go to a long term care phlebotomist substance use program. Sleep is fair but is mood is irritable. He denies side effects to the increased dose of SEroquel 300mg hs. Mental Status Exam - Vital signs Last Vital Signs Temp 98.7 F 03/19/17 10:23 Pulse 62 03/19/17 11:37 Resp 20 03/19/17 10:23 BP 93/64 03/19/17 11:37 Pulse Ox 98 03/19/17 10:23 Assessment and Plan ROS: (+) depression MSE: Appearance: calm, cooperative Behavior: regular eye contact Speech: regular rate and tone Mood: "okay" Affect: congruent to mood Thought Process: circumstantial Thought Content: he denies intention to overdose. no homicidal ideation Perceptual: no AVH Motor Activity: within normal limits Cognition: A/Ox 3 Insight: fair Judgment: fair Assessment and plan: Impression: Historical Dx: Bipolar DO. Substance Use DO (cocaine, marijuana). Today patient is calm and cooperative during the assessment. DDx: R/O MDD with psychotic features, R/O Substance Induced Mood DO Recommendation/Plan: Continue 1013. Continue seroquel to 300mg hs to start mood.
[2017-03-20] MEDS: COREG PO SCH ×2 (11:29→21:58)
[2017-03-20] MEDS: NORVASC PO SCH (11:30)
[2017-03-20] MEDS: FOLVITE PO SCH (11:30)
[2017-03-20] MEDS: APRESOLINE PO SCH ×3 (11:30→21:58)
--- NOTE | 2017-03-20 12:07 | Progress Note ---
Subjective - Reason for Consult Consult date: 03/20/17 Reason for consult: Psychiatry Follow-up - Chief Complaint Chief complaint: "I am ready to get treatment" 51-year-old male here presenting to the ER initially for complaint of chest pain. Patient stated he had been using cocaine and amphetamines. He stated being suicidal or homicidal. Today patient is irritable during the assessment. He stated, "If I don't get help, I don't know what I may do." He would not elaborate about making that statement. He wants to go to a shelter substance use program. He denies HI's, but would not confirm or deny SI's. He denies AVH' s and depression, but he has a irritable mood. He denies any side effects of the seroquel. Mental Status Exam - Vital signs Last Vital Signs Temp 98.8 F 03/20/17 09:00 Pulse 57 L 03/20/17 09:00 Resp 16 03/20/17 09:00 BP 135/88 03/20/17 09:00 Pulse Ox 99 03/20/17 09:00 - Exam Narrative exam: MSE: Appearance: irritable Behavior: regular eye contact Speech: regular rate and tone Mood: "upset" Affect: congruent to mood Thought Process: circumstantial Thought Content: denies HI's and AVH's Motor Activity: lying in bed Cognition: A/Ox 3 Insight: fair Judgment: fair Assessment and Plan Impression: Historical Dx: Bipolar DO. Substance Use DO (cocaine, marijuana). Today patient is irritable during the assessment. Want confirm or deny SI's. Recommendation/Plan: Continue 1013 with placement to inpatient psy services. Continue Seroquel 300 mg PO HS for mood/psychotic symptoms. Discussed possible metabolic side effects of Seroquel with patient.
[2017-03-21] MEDS: APRESOLINE PO SCH ×2 (06:29→15:04)
[2017-03-21 08:38] VITALS: BP 135/87
[2017-03-21] MEDS: NORVASC PO SCH (10:16)
[2017-03-21] MEDS: FOLVITE PO SCH (10:16)
[2017-03-21] MEDS: COREG PO SCH (10:16)
--- NOTE | 2017-03-21 13:18 | Progress Note ---
Subjective - Reason for Consult Consult date: 03/21/17 Reason for consult: Pschiatry Follow-up - Chief Complaint Chief complaint: "I am ready to be discharged" 51-year-old male here presenting to the ER initially for complaint of chest pain. Patient stated he had been using cocaine and amphetamines. He stated being suicidal or homicidal. Today patient is calm and cooperative during assessment. He stated that he was upset yesterday and that's why he would not confirm or deny being suicidal. He is adamant about getting help for his cocaine addiction. He denies SI/HI's, AVH's, and depression. He denies any side effects of the Seroquel. Mental Status Exam - Vital signs Last Vital Signs Temp 98.7 F 03/21/17 08:37 Pulse 68 03/21/17 08:37 Resp 16 03/21/17 08:37 BP 135/87 03/21/17 08:37 Pulse Ox 98 03/21/17 08:37 - Exam Narrative exam: MSE: Appearance: calm, cooperative Behavior: regular eye contact Speech: regular rate and tone Mood: "well" Affect: congruent to mood Thought Process: linear Thought Content: denies HI's and AVH's Motor Activity: lying in bed Cognition: A/Ox 3 Insight: fair Judgment: fair Assessment and Plan Impression: Historical Dx: Bipolar DO. Substance Use DO (cocaine, marijuana). Today patient is calm and cooperative during the assessment. Recommendation/Plan: Rescind 1013. Continue Seroquel 300 mg PO HS for mood. Discussed possible metabolic side effects of Seroquel with patient. Patient given outpatient psy services to [facility] and rehab services for [facility]. Discussed the importance to abstain from recreational drugs with the patient.
--- NOTE | 2017-03-21 18:27 | Event Note ---
Date: 03/21/17 The patient is seen and examined. He is neither homicidal nor suicidal at this time. He is alert and oriented 3, has a GCS of 15, with an NIH score of 0. He is clinically sober, and wants to eat a hamburger. His neurologic and physical exam are unremarkable. He is given a two-week supply of Seroquel, he is instructed to abstain from recreational drugs, and he is instructed to follow up with an outpatient primary care doctor and/or psychiatrist. Fermin cautions are reviewed at this time. Patient will be discharged. Vital Signs 03/14/17 03/14/17 03/14/17 06:29 15:06 17:00 Temperature 98.3 F 98.2 F Pulse Rate 75 64 Respiratory 20 16 Rate Blood Pressure 142/82 Blood Pressure 180/92 [Left] O2 Sat by Pulse 98 100 100 Oximetry 03/14/17 03/14/17 03/14/17 20:00 20:51 21:43 Temperature 98 F 98 F 98 F Pulse Rate 87 79 98 H Respiratory 20 18 18 Rate Blood Pressure Blood Pressure 140/89 156/98 160/103 [Left] O2 Sat by Pulse 100 100 99 Oximetry 03/14/17 03/15/17 03/15/17 23:17 08:39 08:58 Temperature 98.4 F Pulse Rate 80 82 Respiratory 20 Rate Blood Pressure 159/115 Blood Pressure 178/153 147/120 [Left] O2 Sat by Pulse 95 Oximetry 03/15/17 03/15/17 03/15/17 11:16 14:52 20:47 Temperature 98.9 F 98.3 F Pulse Rate 60 64 Respiratory 20 16 Rate Blood Pressure Blood Pressure 169/111 144/89 137/84 [Left] O2 Sat by Pulse 97 99 Oximetry 03/15/17 03/16/17 03/16/17 21:50 03:05 06:55 Temperature Pulse Rate 57 L 63 58 L Respiratory Rate Blood Pressure Blood Pressure 201/121 180/98 142/85 [Left] O2 Sat by Pulse Oximetry 03/16/17 03/16/17 03/16/17 13:02 14:33 21:12 Temperature 98.1 F 98.7 F Pulse Rate 59 L 61 Respiratory 14 16 18 Rate Blood Pressure Blood Pressure 135/92 144/106 [Left] O2 Sat by Pulse 99 16 L 98 Oximetry 03/16/17 03/17/17 03/17/17 23:40 02:00 06:09 Temperature Pulse Rate 62 52 L Respiratory 18 Rate Blood Pressure 154/106 138/94 Blood Pressure [Left] O2 Sat by Pulse 99 Oximetry 03/17/17 03/17/17 03/18/17 08:01 22:00 09:18 Temperature 98.0 F 98.4 F 98.4 F Pulse Rate 74 59 L 60 Respiratory 18 16 18 Rate Blood Pressure Blood Pressure 135/65 140/98 95/68 [Left] O2 Sat by Pulse 99 99 99 Oximetry 03/18/17 03/18/17 03/18/17 15:30 20:21 22:00 Temperature 98.7 F Pulse Rate 68 54 L Respiratory 18 18 18 Rate Blood Pressure Blood Pressure 114/76 90/68 [Left] O2 Sat by Pulse 100 100 99 Oximetry 03/18/17 03/19/17 03/19/17 22:50 10:23 11:36 Temperature 98.7 F Pulse Rate 82 66 62 Respiratory 20 Rate Blood Pressure 132/80 93/64 Blood Pressure 110/64 [Left] O2 Sat by Pulse 98 Oximetry 03/19/17 03/19/17 03/19/17 11:37 17:58 21:41 Temperature Pulse Rate 62 66 60 Respiratory Rate Blood Pressure 93/64 100/60 147/99 Blood Pressure [Left] O2 Sat by Pulse Oximetry 03/19/17 03/20/17 03/20/17 22:41 08:57 09:00 Temperature 98.8 F Pulse Rate 60 57 L Respiratory 16 16 Rate Blood Pressure 147/99 Blood Pressure 135/88 [Left] O2 Sat by Pulse 99 99 Oximetry 03/21/17 03/21/17 03/21/17 06:29 08:36 08:37 Temperature 98.7 F Pulse Rate 66 68 Respiratory 16 16 Rate Blood Pressure 141/99 Blood Pressure 135/87 [Left] O2 Sat by Pulse 100 98 Oximetry Lab Results 03/14/17 03/14/17 03/14/17 Range/Units 07:14 07:14 09:32 WBC 9.8 (4.5-11.0) K/mm3 RBC 4.75 (3.65-5.03) M/mm3 Hgb 15.3 H (11.8-15.2) gm/dl Hct 46.2 H (35.5-45.6) % MCV 97 H (84-94) fl MCH 32 (28-32) pg MCHC 33 (32-34) % RDW 14.3 (13.2-15.2) % Plt Count 285 (140-440) K/mm3 Lymph % (Auto) 19.8 (13.4-35.0) % [place] % (Auto) 8.9 H (0.0-7.3) % Eos % (Auto) 1.2 (0.0-4.3) % Baso % (Auto) 0.9 (0.0-1.8) % Lymph # 1.9 (1.2-5.4) K/mm3 [place] # 0.9 H (0.0-0.8) K/mm3 Eos # 0.1 (0.0-0.4) K/mm3 Baso # 0.1 (0.0-0.1) K/mm3 Seg Neutrophils % 69.2 (40.0-70.0) % Seg Neutrophils # 6.8 (1.8-7.7) K/mm3 Sodium 143 (137-145) mmol/L Potassium 5.0 (3.6-5.0) mmol/L Chloride 101.1 (98-107) mmol/L Carbon Dioxide 26 (22-30) mmol/L Anion Gap 21 mmol/L BUN 5 L (9-20) mg/dL Creatinine 0.9 (0.8-1.5) mg/dL Estimated GFR > 60 ml/min BUN/Creatinine Ratio 5.55 % Glucose 80 (75-100) mg/dL Calcium 9.3 (8.4-10.2) mg/dL Troponin T < 0.010 < 0.010 (0.00-0.029) ng/mL Urine Color (Yellow) Urine Turbidity (Clear) Urine pH (5.0-7.0) Ur Specific [place] (1.003-1.030) Urine Protein (Negative) mg/dL Urine Glucose (UA) (Negative) mg/dL Urine Ketones (Negative) mg/dL Urine Blood (Negative) Urine Nitrite (Negative) Urine Bilirubin (Negative) Urine Urobilinogen (<2.0) mg/dL Ur Leukocyte Esterase (Negative) Urine WBC (Auto) (0.0-6.0) /HPF Urine RBC (Auto) (0.0-6.0) /HPF Urine Mucus /HPF Urine Opiates Screen Urine Methadone Screen Ur Barbiturates Screen Ur Phencyclidine Scrn Ur Amphetamines Screen U Benzodiazepines Scrn Urine Cocaine Screen U Marijuana (THC) Screen Drugs of Abuse Note 03/14/17 03/14/17 03/14/17 Range/Units 13:21 20:20 20:20 WBC (4.5-11.0) K/mm3 RBC (3.65-5.03) M/mm3 Hgb (11.8-15.2) gm/dl Hct (35.5-45.6) % MCV (84-94) fl MCH (28-32) pg MCHC (32-34) % RDW (13.2-15.2) % Plt Count (140-440) K/mm3 Lymph % (Auto) (13.4-35.0) % [place] % (Auto) (0.0-7.3) % Eos % (Auto) (0.0-4.3) % Baso % (Auto) (0.0-1.8) % Lymph # (1.2-5.4) K/mm3 [place] # (0.0-0.8) K/mm3 Eos # (0.0-0.4) K/mm3 Baso # (0.0-0.1) K/mm3 Seg Neutrophils % (40.0-70.0) % Seg Neutrophils # (1.8-7.7) K/mm3 Sodium (137-145) mmol/L Potassium (3.6-5.0) mmol/L Chloride (98-107) mmol/L Carbon Dioxide (22-30) mmol/L Anion Gap mmol/L BUN (9-20) mg/dL Creatinine (0.8-1.5) mg/dL Estimated GFR ml/min BUN/Creatinine Ratio % Glucose (75-100) mg/dL Calcium (8.4-10.2) mg/dL Troponin T < 0.010 (0.00-0.029) ng/mL Urine Color Yellow (Yellow) Urine Turbidity Clear (Clear) Urine pH 6.0 (5.0-7.0) Ur Specific [place] 1.015 (1.003-1.030) Urine Protein <15 mg/dl (Negative) mg/dL Urine Glucose (UA) Neg (Negative) mg/dL Urine Ketones Neg (Negative) mg/dL Urine Blood Neg (Negative) Urine Nitrite Neg (Negative) Urine Bilirubin Neg (Negative) Urine Urobilinogen 2.0 (<2.0) mg/dL Ur Leukocyte Esterase Neg (Negative) Urine WBC (Auto) < 1.0 (0.0-6.0) /HPF Urine RBC (Auto) 1.0 (0.0-6.0) /HPF Urine Mucus Few /HPF Urine Opiates Screen Presumptive negative Urine Methadone Screen Presumptive negative Ur Barbiturates Screen Presumptive negative Ur Phencyclidine Scrn Presumptive negative Ur Amphetamines Screen Presumptive negative U Benzodiazepines Scrn Presumptive negative Urine Cocaine Screen Presumptive positive U Marijuana (THC) Screen Presumptive positive Drugs of Abuse Note Disclamer
== END 2017-03-21 21:17 | disposition home or self-care (01) ==
LOC: ED 05:59 → EEVIPCON 05:59 → ED 03-21 21:17
DX: R07.9 Chest pain, unspecified (principal); R45.851 Suicidal ideations; F14.10 Cocaine abuse, uncomplicated; I10 Essential (primary) hypertension; E11.9 Type 2 diabetes mellitus without complications; K21.9 Gastro-esophageal reflux disease without esophagitis; F20.9 Schizophrenia, unspecified; Z72.0 Tobacco use; Z88.0 Allergy status to penicillin
CPT/HCPCS: 36415; 71010; 80048; 80307; 81001; 84484; 85025; 93005; 93010

== ENCOUNTER 2017-12-30 05:27 | Emergency (ER) | payer SELFPAY | END 2017-12-30 05:28 | disposition left against medical advice (07) | LOC: ED 05:27 | DX: R45.851 Suicidal ideations (principal); Z53.21 Procedure and treatment not carried out due to patient leaving prior to being seen by health care provider ==

== ENCOUNTER 2017-12-30 05:42 | Inpatient (IN) | payer SELFPAY ==
--- NOTE | 2017-12-30 14:16 | Emergency Department Report ---
ED Psych HPI - General Chief Complaint: Psych Stated Complaint: SI Time Seen by Provider: 12/30/17 13:37 Source: patient Mode of arrival: Ambulatory - History of Present Illness Initial Comments: Patient is 52 years old male history of bipolar/schizophrenia. Patient presented to the ER with his chief complaint of depression and suicidal ideation. Patient stated that he wanted to jump in a traffic. Patient stated that he is hearing voices asking him to kill himself he also stated that he is seen demons. Patient is in obvious acute psychosis with flight of ideas and pressured speech. MD Complaint: suicidal ideation, feels depressed Associated Psychiatric Symptoms: depression, suicidal ideation, racing thoughts , auditory hallucinations, visual hallucinations History of same: Yes Quality: constant Improves With: none Context: recent alcohol abuse, recent drug abuse Associated Symptoms: denies other symptoms If Self Harm: admits thoughts of, has plan - Related Data Home Medications Medication Instructions Recorded Confirmed Last Taken Coreg 3.125 mg PO BID 09/06/16 03/16/17 Unknown Trazodone HCl 150 mg PO QHS 03/16/17 03/16/17 Unknown Previous Rx's Medication Instructions Recorded Last Taken Type Hydralazine HCl [Apresoline TAB] 50 mg PO Q8HR #90 tab 09/06/16 Unknown Rx amLODIPine [Norvasc] 10 mg PO QDAY #30 tablet 09/06/16 Unknown Rx QUEtiapine [SEROquel] 300 mg PO HS #14 tablet 03/21/17 Unknown Rx Allergies Allergy/AdvReac Type Severity Reaction Status Date / Time Penicillins Allergy Unknown Verified 05/22/15 05:04 ED Review of Systems ROS: Stated complaint: SI Other details as noted in HPI Comment: All other systems reviewed and negative Constitutional: denies: chills, fever Respiratory: denies: cough, shortness of breath, SOB with exertion Cardiovascular: denies: chest pain, palpitations Gastrointestinal: denies: abdominal pain, nausea, vomiting, diarrhea, constipation, hematemesis, hematochezia Genitourinary: denies: urgency, frequency, hematuria Neurological: denies: headache, weakness, numbness, paresthesias ED Past Medical Hx - Past Medical History Previous Medical History?: Yes Hx Hypertension: Yes Hx Congestive Heart Failure: No Hx Diabetes: Yes Hx GERD: Yes Hx Psychiatric Treatment: Yes (schizophrenia) Hx Asthma: No Hx COPD: No Additional medical history: History of Pancreatitis - Surgical History Past Surgical History?: Yes Hx Coronary Stent: Yes Additional Surgical History: dilated esophagus - Social History Smoking Status: Current Every Day Smoker Substance Use Type: Alcohol, Cocaine - Medications Home Medications: Home Medications Medication Instructions Recorded Confirmed Last Taken Type Coreg 3.125 mg PO BID 09/06/16 03/16/17 Unknown History Hydralazine HCl [Apresoline TAB] 50 mg PO Q8HR #90 tab 09/06/16 03/16/17 Unknown Rx amLODIPine [Norvasc] 10 mg PO QDAY #30 tablet 09/06/16 03/16/17 Unknown Rx Trazodone HCl 150 mg PO QHS 03/16/17 03/16/17 Unknown History QUEtiapine [SEROquel] 300 mg PO HS #14 tablet 03/21/17 Unknown Rx ED Physical Exam - General Limitations: No Limitations General appearance: alert, in no apparent distress - Head Head exam: Present: atraumatic, normocephalic, normal inspection - ENT ENT exam: Present: normal exam, normal orophraynx, mucous membranes moist, normal external ear exam - Neck Neck exam: Present: normal inspection, full ROM. Absent: tenderness, meningismus, lymphadenopathy, thyromegaly - Respiratory Respiratory exam: Present: normal lung sounds bilaterally. Absent: respiratory distress, wheezes, rales, rhonchi, stridor, chest wall tenderness, accessory muscle use, decreased breath sounds, prolonged expiratory - Cardiovascular Cardiovascular Exam: Present: regular rate, normal rhythm, normal heart sounds - GI/Abdominal GI/Abdominal exam: Present: soft, normal bowel sounds. Absent: distended, tenderness, guarding, rebound, rigid, organomegaly, mass, bruit, pulsatile mass , hernia - Extremities Exam Extremities exam: Present: normal inspection, full ROM, normal capillary refill - Back Exam Back exam: Present: normal inspection, full ROM. Absent: tenderness, CVA tenderness (R), CVA tenderness (L), muscle spasm, paraspinal tenderness, vertebral tenderness - Neurological Exam Neurological exam: Present: alert, oriented X3, CN II-XII intact, normal gait, reflexes normal - Psychiatric Psychiatric exam: Present: agitated, anxious, manic, suicidal ideation - Skin Skin exam: Present: warm, dry, intact ED Course Vital Signs 06/02/18 07:19 Temperature 98.1 F Pulse Rate 78 Respiratory 18 Rate Blood Pressure 189/120 O2 Sat by Pulse 100 Oximetry Critical care attestation.: If time is entered above; I have spent that time in minutes in the direct care of this critically ill patient, excluding procedure time. ED Disposition Clinical Impression: Schizophrenia, Cocaine abuse, Suicidal ideation Disposition: [id number]/TX-[id number] PSY HOSP/PSY UNIT Is pt being admited?: No Condition: Stable Referrals: PRIMARY CARE [Primary Care Provider] - 3-5 Days
[2017-12-30 19:33] LABS: Amphetamine Screen,Urine PRESUMPTIVE NEGATIVE; Bilirubin,Urine NEG (Negative); Blood,Urine NEG (Negative); Color,Urine Yellow (Yellow); Hyaline Casts,Urine 1 /LPF; Methadone Screen,Urine PRESUMPTIVE NEGATIVE; Mucus,Urine 1+ /HPF; Opiate Screen,Urine PRESUMPTIVE NEGATIVE
[2017-12-30 19:39] LABS: Basophils # (Auto) 0.1 K/mm3 (0.0-0.1); Basophils % (Auto) 1.3 % (0.0-1.8); Eosinophils # (Auto) 0.8 K/mm3 (0.0-0.4); Eosinophils % (Auto) 10.1 % (0.0-4.3); Hematocrit 36.3 % (35.5-45.6); Hemoglobin 12.1 gm/dl (11.8-15.2); Lymphocytes # (Auto) 1.7 K/mm3 (1.2-5.4); Lymphocytes % (Auto) 21.7 % (13.4-35.0); Mean Corpuscular HGB Conc 33 % (32-34); Mean Corpuscular Hemoglobin 27 pg (28-32); Mean Corpuscular Volume 81 fl (84-94); Monocytes # (Auto) 0.8 K/mm3 (0.0-0.8); Monocytes % (Auto) 10.2 % (0.0-7.3); Platelet Count 344 K/mm3 (140-440)
[2017-12-30 19:40] LABS: Red Cell Distribution Width 20.5 % (13.2-15.2)
[2017-12-30 19:49] LABS: Benzodiazepines Screen,Urine PRESUMPTIVE POSITIVE; Cannabinoid Screen,Urine PRESUMPTIVE POSITIVE; Cocaine Screen,Urine PRESUMPTIVE POSITIVE
[2017-12-30 19:52] LABS: BUN/Creatinine Ratio 6; Blood Urea Nitrogen 8 mg/dL (9-20); Hemolysis Index 5
[2017-12-30] MEDS ORDERED: NITRO-BID 2% TP ONE (23:10)
[2017-12-30] MEDS ORDERED: ZOFRAN IV ONE (23:10)
[2017-12-30] MEDS ORDERED: PEPCID IV ONE (23:10)
[2017-12-30] MEDS ORDERED: MORPHINE IV ONE (23:10)
[2017-12-30] MEDS ORDERED: ASPIRIN PO ONE (23:10)
--- NOTE | 2017-12-30 23:10 | Emergency Department Report ---
Blank Doc - Documentation Documentation: Was asked to evaluate patient after he complained of indigestion. Patient presents to the emergency department with suicidal ideation and history crack cocaine use (last use last night). The patient states upon arrival to the ED he began having "indigestion" type pain in the midepigastric region. The patient states his pain is associated with nausea/vomiting and diaphoresis. Patient denies shortness of breath. Patient's EKG reveals normal sinus rhythm at 70 bpm with new T-wave inversions in leads 2, aVF, V4, V5, V6 when compared to previous EKG dated 03/14/2017 With the patient's EKG changes and complain of chest/epigastric discomfort I will admit the patient to the hospital for further monitoring. Hospitalist melba (Dr. Zuleyka Romo)
[2017-12-30] MEDS ORDERED: K-DUR PO ONE (23:15)
[2017-12-30] MEDS ORDERED: TYLENOL PO PRN (23:52)
[2017-12-30] MEDS ORDERED: ZOFRAN IV PRN (23:52)
[2017-12-30] MEDS ORDERED: SODIUM CHLORIDE FLUSH SYRINGE 10 ML IV PRN (23:52)
[2017-12-30] MEDS ORDERED: PERCOCET 5/325 PO PRN (23:52)
--- NOTE | 2017-12-30 23:52 | History and Physical Report ---
History of Present Illness Date of examination: 12/30/17 History of present illness: 52-year-old man with a history of hypertension, diabetes, schizophrenia, bipolar , polysubstance abuse comes emergency room because he had a 2 week sobriety period but relapsed on drug use. He stated that he became very depressed and wanted to kill himself. In the emergency room he complained of chest pain, epigastric, constant, described as a hurting pain, intensity 4/10, no radiation , he cannot identify exacerbating factors. Admits to nausea, no shortness of breath, diaphoresis or palpitation Review of systems Constitutional: no weight loss, chills Ears, eyes, nose, mouth and throat: no nasal congestion, no nasal discharge, no sinus pressure, no vision change, no red eye. Neck: No neck pain or rigidity. Cardiovascular: no palpitations Respiratory: No cough, shortness of breath Gastrointestinal: no abdominal pain, hematochezia Genitourinary : no dysuria, frequency , no hematuria Musculoskeletal: no joint swelling or muscle ache Integumentary: no rash, no pruritis Neurological: no parathesias, no numbness, no focal weakness Endocrine: no cold or heat intolerance, no polyuria or polydipsia Hematologic/Lymphatic: no easy bruising, no easy bleeding, no gland swelling Allergic/Immunologic: no urticaria, no angioedema. PAST MEDICAL HISTORY:hypertension, diabetes, schizophrenia, bipolar, polysubstance abuse PAST SURGICAL HISTORY: None SOCIAL HISTORY: Admits to alcohol, tobacco or drug use FAMILY HISTORY: Hypertension Medications and Allergies Allergies Allergy/AdvReac Type Severity Reaction Status Date / Time Penicillins Allergy Unknown Verified 05/22/15 05:04 Home Medications Medication Instructions Recorded Confirmed Last Taken Type Coreg 3.125 mg PO BID 09/06/16 03/16/17 Unknown History Hydralazine HCl [Apresoline TAB] 50 mg PO Q8HR #90 tab 09/06/16 03/16/17 Unknown Rx amLODIPine [Norvasc] 10 mg PO QDAY #30 tablet 09/06/16 03/16/17 Unknown Rx Trazodone HCl 150 mg PO QHS 03/16/17 03/16/17 Unknown History QUEtiapine [SEROquel] 300 mg PO HS #14 tablet 03/21/17 Unknown Rx Exam - Physical Exam Narrative exam: Gen. appearance: Patient lying in bed, no apparent distress HEENT: Normocephalic, atraumatic, pupils equally round and reactive to light, extraocular movement intact, and no sclericterus,. No JVD or thyromegaly or nodule,neck supple, no carotid bruit ,mucous membranes moist, no exudate or erythema Heart: S1, S2, regular rate and rhythm Lungs: Clear to auscultation bilaterally, breathing comfortable Abdomen: Positive bowel sounds, nontender, nondistended, no organomegaly Extremity: No edema, cyanosis, clubbing Skin: No rash, nodules, warm, dry Neuro: Oriented 3, cranial nerves II-12 intact, speech is fluent, motor and sensory intact - Constitutional Vitals: Temp Pulse Resp BP Pulse Ox 97.8 F 65 11 L 182/119 96 12/30/17 20:10 12/30/17 23:31 12/30/17 23:31 12/30/17 23:31 12/30/17 23:31 Results - Labs CBC & Chem 7: 12/30/17 19:27 12/30/17 19:27 Labs: Abnormal lab results 12/30/17 12/30/17 12/30/17 Range/Units 19:27 19:27 19:27 MCV (84-94) fl MCH (28-32) pg RDW (13.2-15.2) % [place] % (Auto) (0.0-7.3) % Eos % (Auto) (0.0-4.3) % Eos # (0.0-0.4) K/mm3 Sodium 135 L (137-145) mmol/L Potassium 3.2 L (3.6-5.0) mmol/L Chloride 92.0 L (98-107) mmol/L BUN 8 L (9-20) mg/dL Glucose 170 H (75-100) mg/dL Total Creatine Kinase (55-170) units/L Salicylates < 0.3 L (2.8-20.0) mg/dL Acetaminophen < 5.0 L (10.0-30.0) ug/mL 12/30/17 12/30/17 Range/Units 19:27 19:27 MCV 81 L (84-94) fl MCH 27 L (28-32) pg RDW 20.5 H (13.2-15.2) % [place] % (Auto) 10.2 H (0.0-7.3) % Eos % (Auto) 10.1 H (0.0-4.3) % Eos # 0.8 H (0.0-0.4) K/mm3 Sodium (137-145) mmol/L Potassium (3.6-5.0) mmol/L Chloride (98-107) mmol/L BUN (9-20) mg/dL Glucose (75-100) mg/dL Total Creatine Kinase 234 H (55-170) units/L Salicylates (2.8-20.0) mg/dL Acetaminophen (10.0-30.0) ug/mL - Imaging and Cardiology EKG: image reviewed Chest x-ray: report reviewed Assessment and Plan Assessment Suicidal ideation Chest pain, rule out ACS hypertension diabetes] schizophrenia bipolar polysubstance abuse Plan Admit to medicine Place with a sitter, consult psych Check cardiac enzymes, stress test Check fingersticks initiate insulin scale, Percocet for pain, DVT prophylaxis
[2017-12-31 01:03] LABS: Creatine Kinase MB 1.8 ng/mL (0.0-4.0)
[2017-12-31 07:22] LABS: Hematocrit 34.3 % (35.5-45.6); Hemoglobin 11.5 gm/dl (11.8-15.2); Lymphocytes % (Auto) 33.6 % (13.4-35.0); Mean Corpuscular HGB Conc 34 % (32-34); Mean Corpuscular Hemoglobin 27 pg (28-32); Mean Corpuscular Volume 81 fl (84-94); Platelet Count 330 K/mm3 (140-440); Red Blood Count 4.23 M/mm3 (3.65-5.03)
[2017-12-31 07:23] LABS: Basophils # (Auto) 0.1 K/mm3 (0.0-0.1); Basophils % (Auto) 1.5 % (0.0-1.8); Eosinophils # (Auto) 0.9 K/mm3 (0.0-0.4); Eosinophils % (Auto) 13.9 % (0.0-4.3); Lymphocytes # (Auto) 2.2 K/mm3 (1.2-5.4); Monocytes # (Auto) 0.8 K/mm3 (0.0-0.8); Monocytes % (Auto) 11.8 % (0.0-7.3)
[2017-12-31 07:24] LABS: Red Cell Distribution Width 20.4 % (13.2-15.2)
[2017-12-31 07:43] LABS: Creatine Kinase MB 1.4 ng/mL (0.0-4.0)
[2017-12-31 07:47] LABS: BUN/Creatinine Ratio 10; Blood Urea Nitrogen 11 mg/dL (9-20); Hemolysis Index 1
--- NOTE | 2017-12-31 08:44 | Progress Note ---
Assessment and Plan Assessment and plan: --Suicidal ideation; Suicidal watch, psych evaluation, supportive care --History of bipolar; continue current psych medications, follow psych evaluation and recommendations --Atypical chest pain rule out acute coronary syndrome Continue current cardiac medications, underwent stress test , follow report --Hypertension; moderate control, continue current antihypertensives When necessary medications --DVT prophylaxis; Lovenox --1013 status --DC planning; possible transfer to inpatient psych facility when medically stable Plan of care reviewed with the patient and his nurse Hospitalist Physical - Constitutional Vitals: Temp Pulse Resp BP Pulse Ox 98.8 F 69 18 141/90 98 12/31/17 05:26 12/31/17 05:26 12/31/17 05:26 12/31/17 05:26 12/31/17 05:26 General appearance: Present: no acute distress, well-nourished - EENT Eyes: Present: PERRL, EOM intact - Neck Neck: Present: supple, normal ROM - Respiratory Respiratory effort: normal Respiratory: bilateral: diminished, negative: rales, rhonchi, wheezing - Cardiovascular Rhythm: regular Heart Sounds: Present: S1 & S2 - Extremities Extremities: no ischemia, No edema - Abdominal General gastrointestinal: soft, non-tender, non-distended, normal bowel sounds - Integumentary Integumentary: Present: clear, warm - Psychiatric Psychiatric: appropriate mood/affect, cooperative - Neurologic Neurologic: CNII-XII intact, moves all extremities Results - Labs CBC & Chem 7: 12/31/17 06:29 12/31/17 06:29 Labs: Laboratory Last Values WBC 6.4 K/mm3 (4.5-11.0) 12/31/17 06:29 RBC 4.23 M/mm3 (3.65-5.03) 12/31/17 06:29 Hgb 11.5 gm/dl (11.8-15.2) L 12/31/17 06:29 Hct 34.3 % (35.5-45.6) L 12/31/17 06:29 MCV 81 fl (84-94) L 12/31/17 06:29 MCH 27 pg (28-32) L 12/31/17 06: MCHC 34 % (32-34) 12/31/17 06:29 RDW 20.4 % (13.2-15.2) H 12/31/17 06:29 Plt Count 330 K/mm3 (140-440) 12/31/17 06:29 Lymph % (Auto) 33.6 % (13.4-35.0) 12/31/17 06:29 [place] % (Auto) 11.8 % (0.0-7.3) H 12/31/17 06:29 Eos % (Auto) 13.9 % (0.0-4.3) H 12/31/17 06:29 Baso % (Auto) 1.5 % (0.0-1.8) 12/31/17 06:29 Lymph # 2.2 K/mm3 (1.2-5.4) 12/31/17 06:29 [place] # 0.8 K/mm3 (0.0-0.8) 12/31/17 06:29 Eos # 0.9 K/mm3 (0.0-0.4) H 12/31/17 06:29 Baso # 0.1 K/mm3 (0.0-0.1) 12/31/17 06:29 Seg Neutrophils % 39.2 % (40.0-70.0) L 12/31/17 06: Seg Neutrophils # 2.5 K/mm3 (1.8-7.7) 12/31/17 06:29 Sodium 140 mmol/L (137-145) 12/31/17 06: Potassium 4.6 mmol/L (3.6-5.0) D 12/31/17 06: Chloride 102.8 mmol/L (98-107) 12/31/17 06: Carbon Dioxide 27 mmol/L (22-30) 12/31/17 06:29 Anion Gap 15 mmol/L 12/31/17 06:29 BUN 11 mg/dL (9-20) 12/31/17 06: Creatinine 1.1 mg/dL (0.8-1.5) 12/31/17 06: Estimated GFR > 60 ml/min 12/31/17 06:29 BUN/Creatinine Ratio 10 % 12/31/17 06: Glucose 87 mg/dL (75-100) 12/31/17 06: Calcium 9.0 mg/dL (8.4-10.2) 06/03/18 06:29 Total Creatine Kinase 215 units/L (55-170) H 12/31/17 06:29 CK-MB (CK-2) 1.4 ng/mL (0.0-4.0) 12/31/17 06:29 CK-MB (CK-2) Rel Index 0.6 (0-4) 12/31/17 06:29 Troponin T < 0.010 ng/mL (0.00-0.029) 12/31/17 06:29 NT-Pro-B Natriuret Pep 103.6 pg/mL (0-900) 12/30/17 19:27 Urine Color Yellow (Yellow) 12/30/17 19:10 Urine Turbidity Clear (Clear) 12/30/17 19:10 Urine pH 5.0 (5.0-7.0) 12/30/17 19:10 Ur Specific [place] 1.020 (1.003-1.030) 12/30/17 19:10 Urine Protein 30 mg/dl mg/dL (Negative) 12/30/17 19:10 Urine Glucose (UA) Neg mg/dL (Negative) 12/30/17 19:10 Urine Ketones Neg mg/dL (Negative) 12/30/17 19:10 Urine Blood Neg (Negative) 12/30/17 19:10 Urine Nitrite Neg (Negative) 12/30/17 19:10 Urine Bilirubin Neg (Negative) 12/30/17 19:10 Urine Urobilinogen 4.0 mg/dL (<2.0) 12/30/17 19:10 Ur Leukocyte Esterase Neg (Negative) 12/30/17 19:10 Urine WBC (Auto) 1.0 /HPF (0.0-6.0) 12/30/17 19:10 Urine RBC (Auto) 1.0 /HPF (0.0-6.0) 12/30/17 19:10 U Epithel Cells (Auto) 1.0 /HPF (0-13.0) 12/30/17 19:10 Hyaline Casts 1 /LPF 12/30/17 19:10 Urine Mucus 1+ /HPF 12/30/17 19:10 Salicylates < 0.3 mg/dL (2.8-20.0) L 12/30/17 19:27 Urine Opiates Screen Presumptive negative 12/30/17 19:10 Urine Methadone Screen Presumptive negative 12/30/17 19:10 Acetaminophen < 5.0 ug/mL (10.0-30.0) L 12/30/17 19:27 Ur Barbiturates Screen Presumptive negative 12/30/17 19:10 Ur Phencyclidine Scrn Presumptive negative 12/30/17 19:10 Ur Amphetamines Screen Presumptive negative 12/30/17 19:10 U Benzodiazepines Scrn Presumptive positive 12/30/17 19:10 Urine Cocaine Screen Presumptive positive 12/30/17 19:10 U Marijuana (THC) Screen Presumptive positive 12/30/17 19:10 Drugs of Abuse Note Disclamer 12/30/17 19:10 Plasma/Serum Alcohol < 0.01 % (0-0.07) 12/30/17 19:27
[2017-12-31] MEDS: LOVENOX SUB-Q SCH (13:25)
[2017-12-31] MEDS: COREG PO SCH ×2 (13:25→22:11)
[2017-12-31] MEDS: NORVASC PO SCH (13:26)
[2017-12-31] MEDS: SODIUM CHLORIDE FLUSH SYRINGE 10 ML IV SCH ×2 (13:27→22:12)
--- NOTE | 2017-12-31 15:36 | Consultation ---
History of Present Illness - Reason for Consult Consult date: 12/31/17 Reason for consult: psychiatric evaluation/suicidal ideation - Chief Complaint Chief complaint: "Can you get me some seroquel?" - History of Present Psychiatric Illness Mr. Armstrong is a 52 yo AAM seen for psychiatric evaluation on the telemetry floor. He has history of bipolar/schizophrenia. Patient presented to the ER with his chief complaint of depression and suicidal ideation. Patient stated that he wanted to jump in a traffic. He also reported auditory hallucinations to harm himself. He is on 1013. He is not medically cleared for transfer to an inpatient psychiatric facility. He was admitted to telemetry after he complained of indigestion and had an abnormal EKG. He is being evaluated by the medical team for these concerns. On interview, he reports SI and command AH to harm himself. He denies homicidal ideation. He also asks for residential substance abuse treatment. He states the 30 day programs are not enough. He is aware he is expected to go to a crisis stabilization unit once he is medically cleared. He asked to be started back on seroquel and trazodone. Urine drug screen is positive for benzodiazepines, cocaine, and marijuana. He was surprised about the benzos being in his screen. He denies regular use of any benzodiazepine. He admits to using cocaine and marijuana often. Medications and Allergies Allergies Allergy/AdvReac Type Severity Reaction Status Date / Time Penicillins Allergy Unknown Verified 05/22/15 05:04 Home Medications Medication Instructions Recorded Confirmed Last Taken Type Coreg 3.125 mg PO BID 09/06/16 03/16/17 Unknown History Hydralazine HCl [Apresoline TAB] 50 mg PO Q8HR #90 tab 09/06/16 03/16/17 Unknown Rx amLODIPine [Norvasc] 10 mg PO QDAY #30 tablet 09/06/16 03/16/17 Unknown Rx Trazodone HCl 150 mg PO QHS 03/16/17 03/16/17 Unknown History QUEtiapine [SEROquel] 300 mg PO HS #14 tablet 03/21/17 Unknown Rx Active Meds: Active Medications Acetaminophen (Tylenol) 650 mg PO Q4H PRN PRN Reason: Pain MILD(1-3)/Fever >100.5/[place] Amlodipine Besylate (Norvasc) 10 mg PO QDAY [facility] Last Admin: 12/31/17 13:26 Dose: 10 mg Carvedilol (Coreg) 3.125 mg PO BID [facility] Last Admin: 12/31/17 13:25 Dose: 3.125 mg Enoxaparin Sodium (Lovenox) 40 mg SUB-Q QDAY [facility] Last Admin: 12/31/17 13:25 Dose: 40 mg Hydralazine HCl (Apresoline) 50 mg PO Q8HR ADRIAN Ondansetron HCl (Zofran) 4 mg IV Q8H PRN PRN Reason: Nausea And Vomiting Oxycodone/Acetaminophen (Percocet 5/325) 1 tab PO Q4H PRN PRN Reason: Pain, Moderate (4-6) Quetiapine Fumarate (Seroquel) 300 mg PO HS [facility] Sodium Chloride (Sodium Chloride Flush Syringe 10 Ml) 10 ml IV BID [facility] Last Admin: 12/31/17 13:27 Dose: 10 ml Sodium Chloride (Sodium Chloride Flush Syringe 10 Ml) 10 ml IV PRN PRN PRN Reason: LINE FLUSH Trazodone HCl (Desyrel) 150 mg PO QHS [facility] Past psychiatric history - Past Medical History Past Medical History: diabetes, hypertension - past Psychiatric treatment and history Psych: Bipolar, Schizophrenia psychiatric treatment history: He has been to 30 day treatment centers, such as [facility] He was unable to provider more information - Social History Social history: , other (homeless) Mental Status Exam - Vital signs Last Vital Signs Temp 98.8 F 12/31/17 05:26 Pulse 69 12/31/17 05:26 Resp 18 12/31/17 10:00 BP 112/57 12/31/17 13:26 Pulse Ox 90 12/31/17 10:00 - Exam Narrative exam: He required redirection Orientation: time, place, person Affect: agitated Mood: congruent with affect Thought content: paranoia Thought Process: Tangential Perceptions: auditory, command, hallucinations Speech: pressured Concentration: distractible Motor activity: restless Level of consciousness: alert Memory: Intact Sleep Symptoms: Difficulty Falling Asleep Appetite: decreased Interaction: cooperative Results Result Diagrams: 12/31/17 06:29 12/31/17 06:29 Abnormal lab results 12/30/17 12/30/17 12/30/17 Range/Units 19:27 19:27 19:27 Hgb (11.8-15.2) gm/dl Hct (35.5-45.6) % MCV (84-94) fl MCH (28-32) pg RDW (13.2-15.2) % [place] % (Auto) (0.0-7.3) % Eos % (Auto) (0.0-4.3) % Eos # (0.0-0.4) K/mm3 Seg Neutrophils % (40.0-70.0) % Sodium 135 L (137-145) mmol/L Potassium 3.2 L (3.6-5.0) mmol/L Chloride 92.0 L (98-107) mmol/L BUN 8 L (9-20) mg/dL Glucose 170 H (75-100) mg/dL Total Creatine Kinase (55-170) units/L Salicylates < 0.3 L (2.8-20.0) mg/dL Acetaminophen < 5.0 L (10.0-30.0) ug/mL 12/30/17 12/30/17 12/31/17 Range/Units 19:27 19:27 00:28 Hgb (11.8-15.2) gm/dl Hct (35.5-45.6) % MCV 81 L (84-94) fl MCH 27 L (28-32) pg RDW 20.5 H (13.2-15.2) % [place] % (Auto) 10.2 H (0.0-7.3) % Eos % (Auto) 10.1 H (0.0-4.3) % Eos # 0.8 H (0.0-0.4) K/mm3 Seg Neutrophils % (40.0-70.0) % Sodium (137-145) mmol/L Potassium (3.6-5.0) mmol/L Chloride (98-107) mmol/L BUN (9-20) mg/dL Glucose (75-100) mg/dL Total Creatine Kinase 234 H 238 H (55-170) units/L Salicylates (2.8-20.0) mg/dL Acetaminophen (10.0-30.0) ug/mL 12/31/17 12/31/17 Range/Units 06:29 06:29 Hgb 11.5 L (11.8-15.2) gm/dl Hct 34.3 L (35.5-45.6) % MCV 81 L (84-94) fl MCH 27 L (28-32) pg RDW 20.4 H (13.2-15.2) % [place] % (Auto) 11.8 H (0.0-7.3) % Eos % (Auto) 13.9 H (0.0-4.3) % Eos # 0.9 H (0.0-0.4) K/mm3 Seg Neutrophils % 39.2 L (40.0-70.0) % Sodium (137-145) mmol/L Potassium (3.6-5.0) mmol/L Chloride (98-107) mmol/L BUN (9-20) mg/dL Glucose (75-100) mg/dL Total Creatine Kinase 215 H (55-170) units/L Salicylates (2.8-20.0) mg/dL Acetaminophen (10.0-30.0) ug/mL All other labs normal. Assessment and Plan Assessment and plan: Impression: suicidal ideation with a plan to jump in traffic. He reports command auditory hallucinations to harm himself. He reports a history of schizoaffective disorder, bipolar type. cocaine use disorder cannabis use disorder r/o substance induced psychotic disorder Medical: Addressed by the medical team Chest pain, rule out ACS hypertension diabetes Recommendations: Continue 1013 and transfer to inpatient psychiatric facility once medically cleared. Continue seroquel 300mg hs and trazodone 150mg hs as ordered by the hospitalist Psych will follow for med management and ongoing evaluation of suicidality and psychotic symptoms
[2017-12-31] MEDS: APRESOLINE PO SCH ×2 (17:06→22:11)
--- NOTE | 2017-12-31 17:47 | Event Note ---
Date: 12/31/17 Patient's stress test is negative for reversible ischemia, normal left ventricular function Chest pain probably secondary to gastroesophageal reflux disease Add Protonix 40 mg by mouth daily
[2017-12-31] MEDS: DESYREL PO SCH (22:11)
--- NOTE | 2018-01-01 04:07 | Treadmill Report ---
EXERCISE STRESS TEST REASON FOR TEST: Chest pain. The patient exercised for 9 minutes of a Vic protocol, completing stage 3 and achieving 10 mets. Baseline heart rate was 61 and increased to 110. Peak blood pressure was 158/109. There was no chest pain, ____ fatigue. Baseline ECG was sinus rhythm. With exercise, there were no ST changes of ischemia. No significant dysrhythmias were noted. CONCLUSION: 1. Very good exercise capacity. 2. Suboptimal heart rate response to exercise. 3. No ST changes of ischemia. 4. No significant dysrhythmias. This is a negative exercise ECG test. JOB# [id number] CA/NTS
[2018-01-01] MEDS: APRESOLINE PO SCH ×2 (05:53→23:59)
--- NOTE | 2018-01-01 10:22 | Progress Note ---
Assessment and Plan Assessment and plan: --Suicidal ideation; Suicidal watch, psych evaluation, supportive care --History of bipolar; continue current psych medications, follow psych evaluation and recommendations --Atypical chest pain rule out acute coronary syndrome Stress test and echo negative, stable cardiac-gaxiola for discharge --Chest pain probably noncardiac; due to gastroesophageal reflux disease Management Protonix --Hypertension; moderate control, continue current antihypertensives When necessary medications --Polysubstance abuse; counseling done patient strongly advised to quit recreational drug use Verbalized understanding --DVT prophylaxis; Lovenox --1013 status --DC planning; patient is medically stable to be Discharged and transferred to inpatient psych facility As recommended by psych Plan of care reviewed with the patient and his nurse and the case management Patient can be transferred out of telemetry to medical floor History Interval history: Patient seen and examined Medical records reviewed No new events reported, no new complaints Vital signs stable Hospitalist Physical - Constitutional Vitals: Temp Pulse Resp BP Pulse Ox 98.4 F 64 20 110/70 94 01/01/18 05:30 01/01/18 05:30 01/01/18 05:30 01/01/18 05:30 01/01/18 05:30 General appearance: Present: no acute distress, well-nourished - EENT Eyes: Present: PERRL, EOM intact - Neck Neck: Present: supple, normal ROM - Respiratory Respiratory effort: normal Respiratory: bilateral: diminished, negative: rales, rhonchi, wheezing - Cardiovascular Rhythm: regular Heart Sounds: Present: S1 & S2 - Extremities Extremities: no ischemia, No edema - Abdominal General gastrointestinal: soft, non-tender, non-distended, normal bowel sounds - Integumentary Integumentary: Present: clear, warm - Psychiatric Psychiatric: appropriate mood/affect, cooperative - Neurologic Neurologic: CNII-XII intact, moves all extremities Results - Labs CBC & Chem 7: 12/31/17 06:29 12/31/17 06:29 Labs: Laboratory Last Values WBC 6.4 K/mm3 (4.5-11.0) 12/31/17 06:29 RBC 4.23 M/mm3 (3.65-5.03) 12/31/17 06:29 Hgb 11.5 gm/dl (11.8-15.2) L 12/31/17 06:29 Hct 34.3 % (35.5-45.6) L 12/31/17 06:29 MCV 81 fl (84-94) L 12/31/17 06: MCH 27 pg (28-32) L 12/31/17 06:29 MCHC 34 % (32-34) 12/31/17 06:29 RDW 20.4 % (13.2-15.2) H 12/31/17 06:29 Plt Count 330 K/mm3 (140-440) 12/31/17 06:29 Lymph % (Auto) 33.6 % (13.4-35.0) 12/31/17 06:29 [place] % (Auto) 11.8 % (0.0-7.3) H 12/31/17 06:29 Eos % (Auto) 13.9 % (0.0-4.3) H 12/31/17 06:29 Baso % (Auto) 1.5 % (0.0-1.8) 12/31/17 06:29 Lymph # 2.2 K/mm3 (1.2-5.4) 12/31/17 06:29 [place] # 0.8 K/mm3 (0.0-0.8) 12/31/17 06:29 Eos # 0.9 K/mm3 (0.0-0.4) H 12/31/17 06:29 Baso # 0.1 K/mm3 (0.0-0.1) 12/31/17 06:29 Seg Neutrophils % 39.2 % (40.0-70.0) L 12/31/17 06: Seg Neutrophils # 2.5 K/mm3 (1.8-7.7) 12/31/17 06:29 Sodium 140 mmol/L (137-145) 12/31/17 06:29 Potassium 4.6 mmol/L (3.6-5.0) D 12/31/17 06: Chloride 102.8 mmol/L (98-107) 12/31/17 06: Carbon Dioxide 27 mmol/L (22-30) 12/31/17 06:29 Anion Gap 15 mmol/L 12/31/17 06:29 BUN 11 mg/dL (9-20) 12/31/17 06:29 Creatinine 1.1 mg/dL (0.8-1.5) 12/31/17 06:29 Estimated GFR > 60 ml/min 12/31/17 06:29 BUN/Creatinine Ratio 10 % 12/31/17 06:29 Glucose 87 mg/dL (75-100) 12/31/17 06:29 POC Glucose 123 (70-105) H 12/31/17 18:35 Calcium 9.0 mg/dL (8.4-10.2) 12/31/17 06:29 Total Creatine Kinase 215 units/L (55-170) H 12/31/17 06:29 CK-MB (CK-2) 1.4 ng/mL (0.0-4.0) 12/31/17 06:29 CK-MB (CK-2) Rel Index 0.6 (0-4) 12/31/17 06: Troponin T < 0.010 ng/mL (0.00-0.029) 12/31/17 06:29 NT-Pro-B Natriuret Pep 103.6 pg/mL (0-900) 12/30/17 19:27 Urine Color Yellow (Yellow) 12/30/17 19:10 Urine Turbidity Clear (Clear) 12/30/17 19:10 Urine pH 5.0 (5.0-7.0) 12/30/17 19:10 Ur Specific [place] 1.020 (1.003-1.030) 12/30/17 19:10 Urine Protein 30 mg/dl mg/dL (Negative) 12/30/17 19:10 Urine Glucose (UA) Neg mg/dL (Negative) 12/30/17 19:10 Urine Ketones Neg mg/dL (Negative) 12/30/17 19:10 Urine Blood Neg (Negative) 12/30/17 19:10 Urine Nitrite Neg (Negative) 12/30/17 19:10 Urine Bilirubin Neg (Negative) 12/30/17 19:10 Urine Urobilinogen 4.0 mg/dL (<2.0) 12/30/17 19:10 Ur Leukocyte Esterase Neg (Negative) 12/30/17 19:10 Urine WBC (Auto) 1.0 /HPF (0.0-6.0) 12/30/17 19:10 Urine RBC (Auto) 1.0 /HPF (0.0-6.0) 12/30/17 19:10 U Epithel Cells (Auto) 1.0 /HPF (0-13.0) 12/30/17 19:10 Hyaline Casts 1 /LPF 12/30/17 19:10 Urine Mucus 1+ /HPF 12/30/17 19:10 Salicylates < 0.3 mg/dL (2.8-20.0) L 12/30/17 19:27 Urine Opiates Screen Presumptive negative 12/30/17 19:10 Urine Methadone Screen Presumptive negative 12/30/17 19:10 Acetaminophen < 5.0 ug/mL (10.0-30.0) L 12/30/17 19:27 Ur Barbiturates Screen Presumptive negative 12/30/17 19:10 Ur Phencyclidine Scrn Presumptive negative 12/30/17 19:10 Ur Amphetamines Screen Presumptive negative 12/30/17 19:10 U Benzodiazepines Scrn Presumptive positive 12/30/17 19:10 Urine Cocaine Screen Presumptive positive 12/30/17 19:10 U Marijuana (THC) Screen Presumptive positive 12/30/17 19:10 Drugs of Abuse Note Disclamer 12/30/17 19:10 Plasma/Serum Alcohol < 0.01 % (0-0.07) 12/30/17 19:27
--- NOTE | 2018-01-01 12:25 | Progress Note ---
Subjective - Reason for Consult Consult date: 01/01/18 Reason for consult: Psychiatry Follow-up - Chief Complaint Chief complaint: "Not today" 52 yo AAM seen for psychiatric evaluation on the telemetry floor. He presented to the ER for depression, SI's with a plan to walk into traffic, and AH's. Today the patient is vague during the assessment. He answered very few questions when asked. He did deny having indigestion or chest pain. He would not confirm or deny SI's and AH's. No indications of side effects of his medication. Mental Status Exam - Vital signs Last Vital Signs Temp 98.2 F 01/01/18 11:40 Pulse 66 01/01/18 11:40 Resp 8 L 01/01/18 11:40 BP 114/67 01/01/18 11:40 Pulse Ox 99 01/01/18 11:40 - Exam Narrative exam: MSE: Appearance: vague Behavior: poor eye contact Speech: regular rate and tone Mood: "okay" Affect: congruent to mood Thought Process: circumstantial Thought Content: denies HI's and VH's, he would not confirm or deny SI/AH's Motor Activity: lying in bed Cognition: A/O x 3 Insight: variable Judgment: variable Assessment and Plan Impression: Hx of Schizoaffective DO. Substance Use DO (cocaine). Cannabis Use DO. Today the patient is vague during the assessment. The patient is positive for benzos. Per the initial psy assessment, the patient denies regular use of benzos. No acute withdrawals noted (benzos). DDx: R/O Substance Induced Psychosis, R/O MDD with Psychosis Medical: Addressed by the medical team - Chest pain, R/O ACS, HTN, Diabetes Recommendation/Plan: Continue 1013 with placement to inpatient psy services. Continue Seroquel 300 mg PO HS for mood/psychosis and Trazodone 150 mg PO HS for sleep as ordered by the hospitalist. Discussed possible suicidality/ medication induced go/Priapism with patient reference Trazodone. Discussed possible metabolic side effects of Seroquel with patient.
[2018-01-01] MEDS: COREG PO SCH ×2 (12:45→23:57)
[2018-01-01] MEDS: PROTONIX PO SCH ×3 (12:46→18:57)
[2018-01-01] MEDS: NORVASC PO SCH (12:46)
[2018-01-01] MEDS: SODIUM CHLORIDE FLUSH SYRINGE 10 ML IV SCH (12:48)
[2018-01-01] MEDS: LOVENOX SUB-Q SCH ×2 (12:48→13:28)
--- NOTE | 2018-01-01 14:28 | XRay Report ---
FINAL REPORT PROCEDURE: Portable AP chest x-ray TECHNIQUE: Chest radiograph portable AP upright view. CPT 79200 HISTORY: chest pain COMPARISON: No prior studies are available for comparison. FINDINGS: Heart: Magnified due to projection appears to be normal size.. Mediastinum/Vessels: Normal. Lungs/Pleural space: There is stable mild pleural thickening superior medial aspect right lyubov thorax. This is unchanged from 06/12/2015 suggesting benign etiology.. Bony thorax: No acute osseous abnormality. Life support devices: None. IMPRESSION: No acute cardiopulmonary abnormality.
[2018-01-01] MEDS ORDERED: ALUM-MAG HYDROX-SIMETH 200-200-20MG/5ML PO PRN (18:50)
[2018-01-01 21:38] VITALS: BP 129/92
[2018-01-01] MEDS: DESYREL PO SCH (23:59)
[2018-01-02] MEDS: SODIUM CHLORIDE FLUSH SYRINGE 10 ML IV SCH ×2 (00:02→10:38)
--- NOTE | 2018-01-02 09:51 | Progress Note ---
Subjective - Reason for Consult Consult date: 01/02/18 Reason for consult: Psychiatry Follow-up - Chief Complaint Chief complaint: "I was upset yesterday" 52 yo AAM seen for psychiatric evaluation on the telemetry floor. He presented to the ER for depression, SI's with a plan to walk into traffic, and AH's. Today the patient is calm and cooperative during the assessment. He stated that he was upset yesterday at the staff, so he didn't want to talk with me once I arrived to his room. He stated that he "main" reason for coming to the hospital was to get a refill of his psy prescriptions (medications). He stated that he went about it the wrong way by saying he was suicidal. He stated that he is seen at [facility] in [place], [place] for outpatient psy services. He stated that he plan to return to [facility] once discharged. He denies SI/HI's and AVH's. He denies any side effects of his medications. Mental Status Exam - Vital signs Last Vital Signs Temp 98.8 F 01/01/18 21:04 Pulse 71 01/01/18 23:59 Resp 16 01/01/18 22:00 BP 129/92 01/01/18 23:59 Pulse Ox 98 01/01/18 22:00 - Exam Narrative exam: MSE: Appearance: calm, cooperative Behavior: regular eye contact Speech: regular rate and tone Mood: "okay" Affect: congruent to mood Thought Process: linear Thought Content: denies SI/HI's and AVH's Motor Activity: lying in bed Cognition: A/O x 3 Insight: appropriate Judgment: appropriate Assessment and Plan Impression: Hx of Schizoaffective DO. Substance Use DO (cocaine). Cannabis Use DO. Today the patient is calm and cooperative during the assessment. The patient is positive for benzos. Per the initial psy assessment, the patient denies regular use of benzos. No acute withdrawals noted (benzos). DDx: R/O Substance Induced Psychosis, R/O MDD with Psychosis Medical: Addressed by the medical team - Chest pain, R/O ACS, HTN, Diabetes Recommendation/Plan: Rescind 1013. Continue Seroquel 300 mg PO HS for mood/ psychosis and Trazodone 150 mg PO HS for sleep as ordered by the hospitalist. Discussed possible suicidality/medication induced go/Priapism with patient reference Trazodone. Discussed possible metabolic side effects of Seroquel with patient. The patient can follow up with [facility] in [place], [place] for outpatient/rehab services. Discussed the importance to abstain from recreational drug use with patient.
[2018-01-02] MEDS: LOVENOX SUB-Q SCH (10:38)
[2018-01-02] MEDS: NORVASC PO SCH (10:39)
[2018-01-02] MEDS: PROTONIX PO SCH (10:39)
[2018-01-02] MEDS: COREG PO SCH (10:39)
--- NOTE | 2018-01-02 11:12 | Discharge Summary ---
Providers - Providers Date of Admission: 12/30/17 23:52 Date of discharge: 01/02/18 Attending physician: ARNULFO SOLARES 12/30/17 23:52 Consult to Mental Health [CONS] Routine Reason For Exam: si Place consult to:: Mental health Notified:: Lesley ALVARADO Was contact made?: Yes If yes, spoke with:: Albaro Time called:: 07:20 Primary care physician: [employer] Hospitalization Condition: Stable Disposition: DC-01 TO HOME OR SELFCARE Time spent for discharge: 32 min Core Measure Documentation - Palliative Care Palliative Care/ Comfort Measures: Not Applicable Exam - Constitutional Vitals: Temp Pulse Resp BP Pulse Ox 98.8 F 71 16 129/92 98 01/01/18 21:04 01/01/18 23:59 01/01/18 22:00 01/01/18 23:59 01/01/18 22:00 General appearance: Present: no acute distress, well-nourished - EENT Eyes: Present: PERRL, EOM intact - Neck Neck: Present: supple, normal ROM - Respiratory Respiratory effort: normal Respiratory: bilateral: diminished, negative: rales, rhonchi, wheezing - Cardiovascular Rhythm: regular Heart Sounds: Present: S1 & S2 - Extremities Extremities: no ischemia, No edema Peripheral Pulses: within normal limits - Abdominal General gastrointestinal: Present: soft, non-tender, non-distended, normal bowel sounds - Integumentary Integumentary: Present: clear, warm - Musculoskeletal Musculoskeletal: strength equal bilaterally - Psychiatric Psychiatric: appropriate mood/affect, cooperative - Neurologic Neurologic: CNII-XII intact, moves all extremities Plan Activity: no restrictions Diet: regular Additional Instructions: f/u Behavioral health 1 weel. f/u private psychiatrist in 1 week Follow up with: PRIMARY CARE, [Primary Care Provider] - 3-5 Days Prescriptions: Pantoprazole [Protonix TAB] 40 mg PO QDAY #30 tablet
== END 2018-01-02 11:30 | disposition home or self-care (01) | DRG 392 ==
LOC: ED 05:42 → 4A 23:52 → EEVIPCON 23:52 → 3A 01-01 14:30
PROVIDERS: ADMIT Internal Medicine; ATTEND Internal Medicine
DX: K21.9 Gastro-esophageal reflux disease without esophagitis (principal); R45.851 Suicidal ideations; F20.9 Schizophrenia, unspecified; F19.10 Other psychoactive substance abuse, uncomplicated; Z88.0 Allergy status to penicillin; F31.9 Bipolar disorder, unspecified; I10 Essential (primary) hypertension; E11.9 Type 2 diabetes mellitus without complications; F17.200 Nicotine dependence, unspecified, uncomplicated; F14.10 Cocaine abuse, uncomplicated; Z82.49 Family history of ischemic heart disease and other diseases of the circulatory system
CPT/HCPCS: 36415; 71045; 80048; 80307; 80320; 81001; 82550; 82553; 82962; 83880; 84484; 85025; 93005; 93010; 93017; 96374; 96375; G0480; J1650; J2270; J2405